=== PATIENT | male | born 1945 | race Caucasian/White ===

== ENCOUNTER 2017-02-06 08:25 | Day surgery (SDC) | payer MEDICARE, OTHER ==
--- NOTE | 2017-02-05 09:31 | HISTORY AND PHYSICAL E ---
History and Physical NAME: SELVIN AMEZQUITA : 1945 AGE: 71Y ADMITTED: 02/06/2017 ROOM: REFERRING: [facility] for colon screening, stool positive for blood. PAST SURGICAL HISTORY: Right shoulder surgery. MEDICATIONS: 1. Baby aspirin. 2. Lisinopril. 3. Iron. 4. Pravastatin. ALLERGIES: The patient is allergic to SULFA. SOCIAL HISTORY: . Does not smoke. Does not drink. FAMILY HISTORY: Father had CA of the throat. His mom had cardiac disease. REVIEWING OF SYSTEMS: CARDIAC: Hypertension, high cholesterol. ENDOCRINE: Diabetes. GASTROINTESTINAL: Anemia, blood in the stool. MUSCULOSKELETAL: Arthritis in the hands. PHYSICAL EXAMINATION: GENERAL: Pleasant, alert, oriented. VITAL SIGNS: Blood pressure 160/90, pulse 80, respirations 18, temperature is 98. HEAD, EYES, EARS, NOSE, THROAT: Normal. NECK: Supple. LUNGS: Clear. ABDOMEN: Soft. NEUROLOGIC: Negative. CONCLUSION: Colon screening. PLAN: Scheduled colonoscopy for 02/06. DICTATING PHYSICIAN: CARLOTTA SAMAYOA M.D. [id number] PHY#: [id number] ID: [id number] JOB#: [id number] ACCT: [id number] cc:CARLOTTA SAMAYOA M.D. >
[~2017-02-06 08:25] MED LIST: EPINEPHRINE INJ 1 MG/10 ML DISP.SYRIN ONE; FENTANYL CITRATE INJ/PF 100 MCG/2 ML AMPUL ONE; FLUMAZENIL INJ 0.5 MG/5 ML VIAL IV ONE; GLUCAGON,HUMAN RECOMB 1 MG INJ ONE; GLYCOPYRROLATE INJ 0.4 MG/2 ML VIAL ONE; LIDOCAINE 2% JELLY 30 ML TUBE ONE; MIDAZOLAM 2 MG/2 ML INJ ONE; NALOXONE HCL INJ/PF 0.4 MG/1 ML SDV ONE; ONDANSETRON HCL INJ/PF 4 MG/2 ML SDV ONE
[2017-02-06 10:24] LABS: ABSOLUTE BASOPHILS # (AUTO) 0.1 10^3/uL (0.0-0.2); ABSOLUTE EOSINOPHILS # (AUTO) 0.2 10^3/uL (0.0-0.6); ABSOLUTE LYMPHOCYTES (AUTO) 1.5 10^3/uL (0.5-4.7); ABSOLUTE MONOCYTES (AUTO) 0.5 10^3/uL (0.1-1.4); ABSOLUTE NEUT (AUTO) 6.3 10^3/uL (1.7-8.2); BASOPHILS % (AUTO) 0.7 % (0-2); EOSINOPHILS % (AUTO) 1.8 % (0-6); HEMATOCRIT 39.3 % (37.9-51.0); HEMOGLOBIN 13.4 g/dL (13.5-17.0); HGB HCT DIFFERENCE 0.9; LYMPHOCYTES % (AUTO) 17.5 % (13-45); MEAN CORPUSCULAR HEMOGLOBIN 31.8 pg (27.0-33.4); MEAN CORPUSCULAR HGB CONC 34.1 g/dL (32.0-36.0); MEAN CORPUSCULAR VOLUME 93 fl (80-97); RED BLOOD COUNT 4.21 10^6/uL (4.35-5.55); RED CELL DISTRIBUTION WIDTH 13.4 % (11.5-14.0); WHITE BLOOD COUNT 8.5 10^3/uL (4.0-10.5)
[2017-02-06 10:52] LABS: ALANINE AMINOTRANSFERASE 29 U/L (21-72); ALBUMIN 3.9 g/dL (3.5-5.0); ALKALINE PHOSPHATASE 59 U/L (38-126); ANION GAP 9 (5-19); ASPARTATE AMINO TRANSFERASE 22 U/L (17-59); BILIRUBIN,DIRECT 0.4 mg/dL (0.0-0.4); BILIRUBIN,TOTAL 0.9 mg/dL (0.2-1.3); BLOOD UREA NITROGEN 13 mg/dL (7-20); CALCIUM 9.2 mg/dL (8.4-10.2); CARBON DIOXIDE 29 mmol/L (22-30); CHLORIDE 103 mmol/L (98-107); CREATININE RESULT 0.91 mg/dL (0.52-1.25); GLUCOSE 150 mg/dL (75-110); POTASSIUM 3.8 mmol/L (3.6-5.0); SODIUM 140.8 mmol/L (137-145)
[2017-02-06 11:22] LABS: CARCINOEMBRYONIC ANTIGEN 1.1 ng/mL (<3.0)
[2017-02-06 12:12] VITALS: BP 141/77
--- NOTE | 2017-02-06 13:02 | EKG REPORT ---
SEVERITY:- ABNORMAL ECG - SINUS RHYTHM SUPRAVENTRICULAR BIGEMINY RIGHT BUNDLE BRANCH BLOCK : Confirmed by: Harrison Jeong MD 06-Feb-2017 13:01:21
--- NOTE | 2017-03-15 20:23 | DISCHARGE SUMMARY E ---
Discharge Summary NAME: SELVIN AMEZQUITA : 1945 AGE: 71Y ADMITTED: 02/06/2017 DISCHARGED: 02/06/2017 SUMMARY: The patient presented to us for colon screening. Patient presented to us from the [facility] for colon screening. The patient underwent colon exam today. The patient presented at this time for colon exam, underwent colonoscopy showing a polyp 18 cm above the rectum. The patient did have sigmoid polyp and he does have rectosigmoid polyps. Biopsy 18 cm above the anus showing polyps, 1 cm sessile polyp and 5 cm sessile polyp. Again, the patient did have a polyp at 20 cm above the anus, 0.5 cm, biopsied. He did have another polyp 18 cm above the anus, biopsy obtained. The biopsy came back adenoma polyp. The patient did have a CAT scan after the colonoscopy showing 2 cm, solid enhancing nodule in the left upper pole of the kidney worrisome for primary tumor. Patient needs surgical consult for sessile polyp in the sigmoid and diverticulosis and he is undergoing evaluation and referral for a kidney mass, 2 cm, solid enhancing nodule in the left kidney. DISCHARGE PLAN: Soft diet. Awaiting biopsy results. Nephrology consult. Surgical consult. DICTATING PHYSICIAN: CARLOTTA SAMAYOA M.D. [id number] Y#: [id number] ID: [id number] JOB#: [id number] ACCT: [id number] cc:CARLOTTA SAMAYOA M.D. >
--- NOTE | 2017-03-15 20:33 | OPERATIVE REPORT E ---
Operative Report NAME: SELVIN AMEZQUITA : 1945 AGE: 71Y DATE OF SURGERY: 02/06/2017 ROOM: PREOPERATIVE DIAGNOSIS: Blood in the stool. POSTOPERATIVE DIAGNOSES: 1. A polyp 18 cm above the anus. 2. Diverticulosis. 3. Hemorrhoids. PROCEDURE: Colonoscopy. SURGEON: CARLOTTA SAMAYOA M.D. TISSUE REMOVED OR ALTERED: Biopsy polyp in the sigmoid colon. ANESTHESIA: Versed 2, fentanyl 100. DESCRIPTION: Rectal exam shows external hemorrhoids, sigmoid diverticulosis. Patient did have a polyp biopsy about 20 cm above the anus. There is a sessile polyp in the sigmoid area. Descending colon normal, transverse colon normal, ascending colon normal, cecum normal. Scope withdrawn back from cecum, ascending, transverse, descending, sigmoid all the way to the rectum. CONCLUSION: 1. Diverticulosis. 2. External hemorrhoids. 3. A polyp 18 cm above the anal verge. Patient tolerated the procedure well. CARLOTTA SAMAYOA M.D. DICTATING PHYSICIAN: CARLOTTA SAMAYOA M.D. [id number] PHY#: [id number] ID: [id number] JOB#: [id number] ACCT: [id number] cc:CARLOTTA SAMAYOA M.D. >
== END 2017-02-06 11:45 | disposition home or self-care (01) ==
LOC: END 08:25
PROVIDERS: ATTEND Specialist
PROC: 0DBP8ZX Excision of Rectum, Via Natural or Artificial Opening Endoscopic, Diagnostic (ICD-10-PCS; principal; 2017-02-06 09:00)
DX: D12.7 Benign neoplasm of rectosigmoid junction (principal); K64.4 Residual hemorrhoidal skin tags; R97.0 Elevated carcinoembryonic antigen [CEA]; Z79.899 Other long term (current) drug therapy
CPT/HCPCS: 45380; 36415; 82378; 85025; 80053; 88305 ×2; 93005; 93010; J2250; J3010; J1610; J2405; J0171; J2310; J3490

== ENCOUNTER → 2017-02-12 | Outpatient (CLI) | payer MEDICARE ==
--- NOTE | 2017-02-12 15:27 | RADIOLOGY REPORT (SQ) ---
EXAM DESCRIPTION: CT ABD/PELVIS WITH IV ONLY COMPLETED DATE/TIME: 02/12/2017 1:51 pm REASON FOR STUDY: POLYP OF COLON (K63.5) K63.5 POLYP OF COLON COMPARISON: None. TECHNIQUE: CT scan of the abdomen and pelvis performed using helical scanning technique with dynamic intravenous contrast injection. No oral contrast. Images reviewed with lung, soft tissue, and bone windows. Reconstructed coronal and sagittal MPR images reviewed. Delayed images for evaluation of the urinary system also acquired. All images stored on PACS. All CT scanners at this facility use dose modulation, iterative reconstruction, and/or weight based d osing when appropriate to reduce radiation dose to as low as reasonably achievable (ALARA). [facility]: Dose Right [facility]: CareDose [facility]: Dose Right [facility]: Teradose 4D [facility]: Aframe CONTRAST TYPE AND DOSE: contrast/concentration: Isovue 370.00 mg/ml; Total Contrast Delivered: 100.0 ml; Total Saline Delivered: 72.0 ml RENAL FUNCTION: Creatinine 0.91 RADIATION DOSE: Up-to-date CT equipment and radiation dose reduction techniques were employed. CTDIv ol: 12.3 - 14.1 mGy. DLP: 1657 mGy-cm.. LIMITATIONS: None. FINDINGS: LOWER CHEST: No significant findings. No nodules or infiltrates. LIVER: Normal size. No masses. No dilated ducts. SPLEEN: Normal size. No focal lesions. PANCREAS: No masses. No significant calcifications. No adjacent inflammation or peripancreatic fluid collections. Pancreatic duct not dilated. GALLBLADDER: No identified stones by CT criteria. No inflammatory changes to suggest cholecystitis. ADRENAL GLANDS: No significant masses or asymmetry. RIGHT KIDNEY AND URETER: No solid masses. 2 cm right upper pole renal cortical cyst No significant c alcifications. No hydronephrosis or hydroureter. LEFT KIDNEY AND URETER: 2 cm avidly enhancing left upper pole renal cortical mass worrisome for small primary neoplasm, best shown on axial image 40 and sagittal reconstruction image 59. No significan t calcifications. No hydronephrosis or hydroureter. AORTA AND VESSELS: No aneurysm. No dissection. Renal arteries, SMA, celiac without stenosis. RETROPERITONEUM: No retroperitoneal adenopathy, hemorrhage or masses. BOWEL AND PERITONEAL CAVITY: No oral contrast. No CT evidence of bowel obstruction. No free intrape ritoneal air or fluid. APPENDIX: Normal. PELVIS: No mass. No free fluid. Normal bladder. ABDOMINAL WALL: Small fat containing bilateral inguinal hernias. BONES: No significant or acute findings. OTHER: No other significant finding. IMPRESSION: 2 cm solid enhancing nodule in the left upper pole kidney worrisome for primary tumor. TECHNICAL DOCUMENTATION: JOB ID: [id number] Quality ID # [id number]: Final reports with documentation of one or more dose reduction techniques (e.g., Au tomated exposure control, adjustment of the mA and/or kV according to patient size, use of iterative reconstruction technique) 2010 [email or web address]- All Rights Reserved
== END ==
LOC: RAD 13:04
PROVIDERS: ATTEND Surgery
DX: K63.5 Polyp of colon (principal)
CPT/HCPCS: 74177

== ENCOUNTER 2017-08-12 08:20 | Day surgery (SDC) | payer OTHER, MEDICARE ==
[2017-08-12 09:39] LABS: HEMATOCRIT 38.8 % (37.9-51.0); HEMOGLOBIN 13.2 g/dL (13.5-17.0); MEAN CORPUSCULAR HEMOGLOBIN 31.6 pg (27.0-33.4); MEAN CORPUSCULAR HGB CONC 33.9 g/dL (32.0-36.0); MEAN CORPUSCULAR VOLUME 93 fl (80-97); PLATELET COUNT 372 10^3/uL (150-450); RED BLOOD COUNT 4.17 10^6/uL (4.35-5.55); RED CELL DISTRIBUTION WIDTH 13.3 % (11.5-14.0)
[2017-08-12] MEDS ORDERED: ONDANSETRON HCL INJ/PF 4 MG/2 ML SDV ONE (09:41)
[2017-08-12] MEDS ORDERED: NALOXONE HCL INJ/PF 0.4 MG/1 ML SDV ONE (09:42)
[2017-08-12] MEDS ORDERED: FLUMAZENIL INJ 0.5 MG/5 ML VIAL ONE (09:43)
[2017-08-12] MEDS ORDERED: GLUCAGON,HUMAN RECOMB 1 MG INJ ONE (09:43)
[2017-08-12] MEDS ORDERED: EPINEPHRINE INJ 1 MG/10 ML DISP.SYRIN ONE (09:43)
[2017-08-12 10:01] LABS: ALANINE AMINOTRANSFERASE 35 U/L (21-72); ALBUMIN 4.4 g/dL (3.5-5.0); ALKALINE PHOSPHATASE 60 U/L (38-126); ANION GAP 10 (5-19); ASPARTATE AMINO TRANSFERASE 25 U/L (17-59); BILIRUBIN,DIRECT 0.1 mg/dL (0.0-0.4); BILIRUBIN,TOTAL 0.7 mg/dL (0.2-1.3); BLOOD UREA NITROGEN 12 mg/dL (7-20); CALCIUM 9.9 mg/dL (8.4-10.2); CARBON DIOXIDE 28 mmol/L (22-30); CHLORIDE 104 mmol/L (98-107); GLUCOSE 98 mg/dL (75-110); POTASSIUM 4.5 mmol/L (3.6-5.0); SODIUM 141.5 mmol/L (137-145); TOTAL PROTEIN 7.2 g/dL (6.3-8.2)
[2017-08-12] MEDS: MIDAZOLAM 2 MG/2 ML INJ ONE ×2 (10:26→10:32)
[2017-08-12] MEDS: FENTANYL CITRATE INJ/PF 100 MCG/2 ML AMPUL ONE ×3 (10:28→10:34)
[2017-08-12 10:31] LABS: CARCINOEMBRYONIC ANTIGEN 1.4 ng/mL (<3.0)
--- NOTE | 2017-08-12 11:24 | Operative Report ---
Operative Report DATE OF SURGERY: 08/12/17 PREOPERATIVE DIAGNOSIS: Colon mass. POSTOPERATIVE DIAGNOSIS: Right colon half centimeter sessile polyp. Distal sigmoid colon mass. Rectosigmoid colon mass. OPERATION: Colonoscopy with snare polypectomy right colon polyp. Biopsy of distal sigmoid colon and rectosigmoid colon masses. Rigid proctoscopy. SURGEON: DAKOTA HOLGUIN ANESTHESIA: Moderate Sedation TISSUE REMOVED OR ALTERED: Right colon polyp. Distal sigmoid and rectosigmoid mass. COMPLICATIONS: None ESTIMATED BLOOD LOSS: Minimal INTRAOPERATIVE FINDINGS: Half centimeter sessile polyp in the right colon. Distal sigmoid colon 3 cm sessile mass. 4-5 cm rectosigmoid colon mass appears partially pedunculated. PROCEDURE: Informed consent was obtained. Patient was brought to the endoscopy suite. IV sedation with Versed and fentanyl was administered. Digital rectal exam revealed no palpable perianal masses. Endoscope was passed via the patient's anus it was fed to the cecum. The bowel prep was adequate. Visualization was good. Right colon had 1/2 cm sessile polyp which was snare polypectomy need and the specimen retrieved. Otherwise the cecum and the right colon appeared normal. Transverse colon and descending colon appeared normal. At the distal sigmoid colon there was a 3 cm sessile mass which appeared friable this was biopsied. Just distal to this mass at the rectosigmoid junction there was a 4- 5 cm mass that appear partially pedunculated. This mass was biopsied. Remainder of the rectum appeared normal. Rigid proctoscopy was performed to measure the distance from the anal verge. The rectosigmoid mass was 14 cm from the anal verge. Patient tolerated procedure well with no apparent complications and was taken to the recovery area in stable condition. Status post successful snare polypectomy right colon polyp. Patient with 2 masses at the distal sigmoid colon and rectosigmoid junction, beginning at 14 cm from the anal verge. Will follow up with the patient to discuss surgical approach.
--- NOTE | 2017-08-12 11:26 | PDOC DISCHARGE SUMMARY ---
Discharge Summary (SDC) - Discharge Final Diagnosis: Right colon polyp. Distal sigmoid colon mass. Rectosigmoid colon mass. Distal margin of the masses was at 14 cm from the anal verge. Date of Surgery: 08/12/17 Discharge Date: 08/12/17 Condition: Good Treatment or Instructions: Underwent colonoscopy with snare polypectomy. Biopsies of rectosigmoid colon mass and distal sigmoid colon mass. November discharge patient home when met discharge criteria. Follow-up with me next week. Discharge Diet: As Tolerated Discharge Activity: Activity As Tolerated Report the Following to Your Physician Immediately: Increase in Pain, Unusual Bleeding - Normal to have small amount of bleeding but if large amounts of bleeding, stop aspirin and call MD.
[2017-08-12 12:55] VITALS: BP 165/92
== END 2017-08-12 12:10 | disposition home or self-care (01) ==
LOC: END 08:20
PROVIDERS: ATTEND Surgery
PROC: 0DBF8ZX Excision of Right Large Intestine, Via Natural or Artificial Opening Endoscopic, Diagnostic (ICD-10-PCS; principal; 2017-08-12 10:00)
PROC: 0DBN8ZX Excision of Sigmoid Colon, Via Natural or Artificial Opening Endoscopic, Diagnostic (ICD-10-PCS; 2017-08-12 10:00)
PROC: 0DBP8ZX Excision of Rectum, Via Natural or Artificial Opening Endoscopic, Diagnostic (ICD-10-PCS; 2017-08-12 10:00)
DX: K63.5 Polyp of colon (principal); D12.7 Benign neoplasm of rectosigmoid junction; I10 Essential (primary) hypertension; Z88.2 Allergy status to sulfonamides
CPT/HCPCS: 45380; 45385; 36415; 82378; 85027; 80053; 88305 ×2; J2250; J3010; 46600; J0171; J1610; J2310; J2405; J3490

== ENCOUNTER 2017-09-02 12:01 | Inpatient (IN) | payer OTHER, MEDICARE ==
[2017-08-27 12:01] LABS: HEMATOCRIT 40.2 % (37.9-51.0); HEMOGLOBIN 13.9 g/dL (13.5-17.0); MEAN CORPUSCULAR HEMOGLOBIN 31.7 pg (27.0-33.4); MEAN CORPUSCULAR HGB CONC 34.4 g/dL (32.0-36.0); MEAN CORPUSCULAR VOLUME 92 fl (80-97); PLATELET COUNT 335 10^3/uL (150-450); RED BLOOD COUNT 4.36 10^6/uL (4.35-5.55); RED CELL DISTRIBUTION WIDTH 13.4 % (11.5-14.0); WHITE BLOOD COUNT 8.1 10^3/uL (4.0-10.5)
[2017-08-27 12:27] LABS: ANION GAP 12 (5-19); BLOOD UREA NITROGEN 13 mg/dL (7-20); CALCIUM 8.7 mg/dL (8.4-10.2); CARBON DIOXIDE 25 mmol/L (22-30); CHLORIDE 105 mmol/L (98-107); GLUCOSE 83 mg/dL (75-110); POTASSIUM 4.7 mmol/L (3.6-5.0); SODIUM 141.7 mmol/L (137-145)
--- NOTE | 2017-08-27 13:43 | EKG REPORT ---
SEVERITY:- ABNORMAL ECG - SINUS RHYTHM RBBB AND LAFB NONSPECIFIC T INVERSION INFERIOR LEADS : Confirmed by: Harrison Jeong MD 27-Aug-2017 13:42:17
[~2017-09-02 12:01] MED LIST changes: -EPINEPHRINE INJ 1 MG/10 ML DISP.SYRIN ONE; +ERTAPENEM SODIUM 1 GM in NORMAL SALINE 100 ML IV PRN; -FENTANYL CITRATE INJ/PF 100 MCG/2 ML AMPUL ONE; -FLUMAZENIL INJ 0.5 MG/5 ML VIAL IV ONE; -GLUCAGON,HUMAN RECOMB 1 MG INJ ONE; +LACTATED RINGERS 1000 ML IV PRN; +LIDOCAINE 0.5% INJ-PF (5 MG/ML) 50 ML SDV SUBCUT PRN; -LIDOCAINE 2% JELLY 30 ML TUBE ONE; -MIDAZOLAM 2 MG/2 ML INJ ONE; -NALOXONE HCL INJ/PF 0.4 MG/1 ML SDV ONE; +NEOSTIGMINE METHYLSULFATE 10 MG/10 ML VIAL ONE; -ONDANSETRON HCL INJ/PF 4 MG/2 ML SDV ONE; +ROCURONIUM BROMIDE INJ 50 MG/5 ML VIAL IV ONE; +SUCCINYLCHOLINE CHLORIDE INJ 200 MG/10 ML VIAL ONE; +VECURONIUM BROMIDE INJ 10 MG VIAL IV ONE
[2017-09-02] MEDS ORDERED: BUPIVACAINE HCL 0.25 % INJ/PF (2.5 MG/1 ML) 30 ML VIAL ONE (13:51)
[2017-09-02] MEDS ORDERED: LIDOCAINE 2% INJ-PF (20 MG/ML) 10 ML AMPUL ONE (14:16)
[2017-09-02] MEDS ORDERED: FENTANYL CITRATE INJ/PF 250 MCG/5 ML AMPULE ONE ×2 (14:16→16:29)
[2017-09-02] MEDS ORDERED: EPHEDRINE SULFATE INJ 50 MG/1 ML AMPULE ONE (14:16)
[2017-09-02] MEDS ORDERED: MIDAZOLAM 2 MG/2 ML INJ ONE (14:16)
[2017-09-02] MEDS ORDERED: ACETAMINOPHEN 100 ML IV ONE (14:17)
[2017-09-02] MEDS ORDERED: PROPOFOL INJ 200 MG/20 ML VIAL IV ONE (14:17)
[2017-09-02] MEDS ORDERED: HYDROMORPHONE HCL INJ/PF 2 MG/ML AMPULE ONE (14:17)
[2017-09-02] MEDS ORDERED: ONDANSETRON HCL INJ/PF 4 MG/2 ML SDV ONE (14:17)
[2017-09-02] MEDS ORDERED: DEXAMETHASONE SOD PHOSPHATE INJ 4 MG/1 ML VIAL ONE (14:17)
[2017-09-02] MEDS ORDERED: HYDRALAZINE HCL INJ/PF 20 MG/1 ML SDV ONE (16:28)
[2017-09-02] MEDS ORDERED: DIPHENHYDRAMINE HCL 50 MG/ML VIAL IV PRN (18:00)
[2017-09-02] MEDS ORDERED: MORPHINE SULFATE 10 MG/ML INJ IV PRN (18:00)
[2017-09-02] MEDS ORDERED: FENTANYL CITRATE INJ/PF 100 MCG/2 ML AMPUL IV PRN ×3 (18:00)
[2017-09-02] MEDS ORDERED: OXYCODONE-ACETAMINOPHEN 5-325 MG TABLET PO PRN ×2 (18:00)
[2017-09-02] MEDS ORDERED: MEPERIDINE HCL/PF INJ 25 MG/1 ML DISP.SYRIN IV PRN (18:00)
[2017-09-02] MEDS ORDERED: PROMETHAZINE HCL INJ 25 MG/1 ML VIAL IV PRN ×2 (18:00)
[2017-09-02] MEDS ORDERED: ONDANSETRON HCL INJ/PF 4 MG/2 ML SDV IV PRN ×2 (18:00→19:35)
[2017-09-02] MEDS ORDERED: DEXTROSE 50%-WATER 25 GM/50 ML DISP.SYRIN IV PRN ×2 (19:35)
[2017-09-02] MEDS ORDERED: DEXTROSE 40% GEL 15 GM TUBE PO PRN ×2 (19:35)
[2017-09-02] MEDS ORDERED: HYDROMORPHONE HCL INJ/PF 2 MG/ML AMPULE IV PRN (19:35)
[2017-09-02] MEDS ORDERED: GLUCAGON,HUMAN RECOMB 1 MG INJ SUBCUT PRN (19:35)
--- NOTE | 2017-09-02 19:35 | Operative Report ---
Operative Report DATE OF SURGERY: 09/02/17 PREOPERATIVE DIAGNOSIS: Rectosigmoid adenomatous polyps POSTOPERATIVE DIAGNOSIS: Upper rectal masses 2 OPERATION: Low anterior resection with mobilization of the splenic flexure. SURGEON: DAKOTA HOLGUIN ANESTHESIA: GA TISSUE REMOVED OR ALTERED: Rectosigmoid COMPLICATIONS: None ESTIMATED BLOOD LOSS: 200 cc INTRAOPERATIVE FINDINGS: Large pedunculated polyp at the upper rectum with a large sessile polyp just superior to the pedunculated polyp. PROCEDURE: Informed consent was obtained. Patient was brought to the operating room and placed on the operating room table in the supine position. After satisfactory induction of general anesthesia patient was placed in a low lithotomy position and his abdomen and perineum were prepped and draped in the usual sterile fashion. A midline abdominal incision was made, dissection carried down through the fascia and the peritoneal cavity entered without difficulty. A wound protractor as well as a Bookwalter retractor was used during the case. Exploratory laparotomy was performed first. The small bowel was run demonstrating no abnormalities. The right colon and transverse colon descending colon felt normal. At upper rectum at the level of the peritoneal reflection there was a palpable mass. Stomach felt smooth. As did the liver. NG tube position was confirmed with palpation. The peritoneal surface of the abdominal wall felt smooth with no nodules. The sigmoid colon was mobilized and dissection was carried out distally staying in an avascular plane posteriorly first and then performing the lateral dissection and then the anterior dissection to the level of the mid rectum. The left colon and splenic flexure were mobilized. This portion of the procedure was difficult due to a very high positioned splenic flexure and dense omental adhesions. The proximal sigmoid colon was divided with a MELYSSA stapling device and the mesentery of the sigmoid colon was taken along with the specimen. A plane was created between the mid rectum and the mesorectum and the rectum was divided using a contour stapling device. The mesorectum was divided using a LigaSure device. The specimen was taken to pathology where it was opened. The post pathologist cut the distal staple line first and then proceeded to open the specimen longitudinally. There were 2 masses in the upper rectum. The lower of the two masses appeared pedunculated and in cross sectioning it, it did not appear to penetrate the muscularis. The distal margin from this lower pedunculated mucosal mass was at least a centimeter. The mass above this one had a margin of greater than 3 cm. This mass was sessile and appeared to penetrate the muscularis. The colon end reached down to the rectal stump without tension. The colon end appeared well vascularized with palpable pulses in the mesentery. Head of a 33 EEA stapling device was attached to the colon end the using a pursestring device. End-to-end anastomosis was then created between the colon and the rectum. Both of the donuts were intact. Anastomosis appeared secure. Proctoscopy was performed verifying secureness of the anastomosis. Hemostasis appeared to be good. Sponge, needle, and instrument counts were all correct. Gene-Jovel drain was placed in the patient's pelvis and brought out through separate stab incision in the patient's right lower abdomen. The fascia was closed with running PDS suture. Skin was closed with ramon. Marcaine was injected at the operative site.
[2017-09-02] MEDS ORDERED: PHARMACY COMMUNICATION ORDER MC NR (19:45)
--- NOTE | 2017-09-02 19:45 | PDOC PROGRESS REPORT ---
Subjective Progress Note for:: 09/02/17 Subjective:: Drowsy but arousable. Comfortable. Reason For Visit: K63.5 POLYP OF COLON Physical Exam Vital Signs: Temp Pulse Resp BP Pulse Ox 98.0 F 71 20 150/93 H 95 09/02/17 12:52 09/02/17 12:52 09/02/17 12:52 09/02/17 12:52 09/02/17 12:52 Intake & Output 09/01/17 09/02/17 09/03/17 06:59 06:59 06:59 Intake Total 3200 Output Total 1425 Balance 1775 General appearance: PRESENT: no acute distress Respiratory exam: PRESENT: clear to auscultation alisha Cardiovascular exam: PRESENT: RRR GI/Abdominal exam: PRESENT: other - Soft, drain output slight blood-tinged. Extremities exam: PRESENT: other - No swelling. No tenderness. Results Laboratory Results: 08/27/17 10:55 08/27/17 10:55 Assessment & Plan - Diagnosis (1) Rectal neoplasm Is this a current diagnosis for this admission?: Yes Plan: Upper rectal neoplasm's 2 status post low anterior resection. Patient looks good postoperatively.
[2017-09-03 07:17] LABS: HEMATOCRIT 37.7 % (37.9-51.0); HEMOGLOBIN 12.5 g/dL (13.5-17.0); MEAN CORPUSCULAR HEMOGLOBIN 30.9 pg (27.0-33.4); MEAN CORPUSCULAR HGB CONC 33.1 g/dL (32.0-36.0); MEAN CORPUSCULAR VOLUME 93 fl (80-97); PLATELET COUNT 326 10^3/uL (150-450); RED BLOOD COUNT 4.04 10^6/uL (4.35-5.55); RED CELL DISTRIBUTION WIDTH 13.9 % (11.5-14.0); WHITE BLOOD COUNT 19.8 10^3/uL (4.0-10.5)
[2017-09-03 07:32] LABS: ANION GAP 9 (5-19); BLOOD UREA NITROGEN 17 mg/dL (7-20); CALCIUM 9.1 mg/dL (8.4-10.2); CARBON DIOXIDE 23 mmol/L (22-30); CHLORIDE 107 mmol/L (98-107); GLUCOSE 122 mg/dL (75-110); POTASSIUM 4.3 mmol/L (3.6-5.0); SODIUM 138.6 mmol/L (137-145)
--- NOTE | 2017-09-03 09:09 | PDOC PROGRESS REPORT ---
Subjective Progress Note for:: 09/03/17 Subjective:: Complaining of back pain due to uncomfortable bed. That is bothering him much more than anything else at this point. Reason For Visit: UPPER RECTAL NEOPLASMS Physical Exam Vital Signs: Temp Pulse Resp BP Pulse Ox 97.9 F 84 20 127/81 H 100 09/03/17 08:25 09/03/17 08:25 09/03/17 08:25 09/03/17 08:25 09/03/17 08:25 Intake & Output 09/02/17 09/03/17 09/04/17 06:59 06:59 06:59 Intake Total 4210 Output Total 2145 Balance 206 General appearance: PRESENT: no acute distress, cooperative Respiratory exam: PRESENT: clear to auscultation alisha Cardiovascular exam: PRESENT: RRR GI/Abdominal exam: PRESENT: other - Soft, nondistended, appropriate tenderness. NG output is minimal and nonbilious. Extremities exam: PRESENT: other - No swelling and no tenderness. Results Laboratory Results: 09/03/17 06:13 09/03/17 06:13 09/03/17 09/03/17 06:13 06:13 WBC 19.8 H RBC 4.04 L Hgb 12.5 L Hct 37.7 L MCV 93 MCH 30.9 MCHC 33.1 RDW 13.9 Plt Count 326 Sodium 138.6 Potassium 4.3 Chloride 107 Carbon Dioxide 23 Anion Gap 9 BUN 17 Creatinine 0.71 Est GFR ( Amer) > 60 Est GFR (Non-Af Amer) > 60 Glucose 122 H Calcium 9.1 Assessment & Plan - Diagnosis (1) Rectal neoplasm Is this a current diagnosis for this admission?: Yes Plan: Upper rectal neoplasm's 2 status post low anterior resection. Patient has not received his narcotics for pain medication today. Encourage patient to use his pain medication and will also add Toradol. Will get the patient up out of bed. When he is ambulating well will DC his NG tube and his Goodwin catheter.
[2017-09-03] MEDS ORDERED: (PENDING PHARMACY ID) (Pravastatin Sodium [Pravastatin Sodium] 10 MG) PO SCH (10:00)
[2017-09-03] MEDS ORDERED: (PENDING PHARMACY ID) (Lisinopril [Prinivil 20 Mg Tablet] 20 MG) PO SCH (10:00)
[2017-09-03] MEDS ORDERED: CYANOCOBALAMIN 1000 MG PO SCH (10:00)
[2017-09-03] MEDS: KETOROLAC TROMETHAMINE INJ/PF 30 MG/1 ML SDV IV PRN ×2 (10:32→19:49)
[2017-09-03] MEDS: LISINOPRIL 10 MG TABLET PO SCH (10:33)
[2017-09-03] MEDS: CYANOCOBALAMIN (VITAMIN B-12) 1,000 MCG TABLET PO SCH (10:33)
[2017-09-03] MEDS: NORMAL SALINE 1000 ML 1,000 ML IV PRN (11:27)
[2017-09-03] MEDS: SIMVASTATIN 10 MG TABLET PO SCH (21:10)
[2017-09-04] MEDS: LISINOPRIL 10 MG TABLET PO SCH (09:29)
[2017-09-04] MEDS: CYANOCOBALAMIN (VITAMIN B-12) 1,000 MCG TABLET PO SCH (09:29)
[2017-09-04] MEDS: NORMAL SALINE 1000 ML 1,000 ML IV PRN (09:30)
[2017-09-04] MEDS: KETOROLAC TROMETHAMINE INJ/PF 30 MG/1 ML SDV IV PRN ×2 (09:50→18:00)
--- NOTE | 2017-09-04 11:26 | PDOC PROGRESS REPORT ---
Subjective Progress Note for:: 09/04/17 Subjective:: Feels well. Not passing any gas yet. Back feels much better. Ambulating well. Reason For Visit: UPPER RECTAL NEOPLASMS Physical Exam Vital Signs: Temp Pulse Resp BP Pulse Ox 97.8 F 73 18 184/93 H 97 09/04/17 08:17 09/04/17 08:17 09/04/17 08:17 09/04/17 08:17 09/04/17 08:17 Intake & Output 09/03/17 09/04/17 09/05/17 06:59 06:59 06:59 Intake Total 4210 3575 Output Total 2145 840 Balance 2065 2735 Weight 100.24 kg General appearance: PRESENT: no acute distress, cooperative Respiratory exam: PRESENT: clear to auscultation alisha Cardiovascular exam: PRESENT: RRR GI/Abdominal exam: PRESENT: other - Soft, nondistended, mild tenderness to palpation. Extremities exam: PRESENT: other - No swelling. No tenderness. Results Laboratory Results: 09/03/17 06:13 09/03/17 06:13 Assessment & Plan - Diagnosis (1) Rectal neoplasm Is this a current diagnosis for this admission?: Yes Plan: Upper rectal neoplasm's 2 status post low anterior resection. Patient looks much better. Await bowel function. Keep NG tube in for now. IVETT Goodwin.
--- NOTE | 2017-09-04 17:33 | PDOC PROGRESS REPORT ---
Subjective Reason For Visit: UPPER RECTAL NEOPLASMS Physical Exam Vital Signs: Temp Pulse Resp BP Pulse Ox 98.1 F 76 18 176/95 H 97 09/04/17 16:32 09/04/17 16:32 09/04/17 16:32 09/04/17 16:32 09/04/17 16:32 Intake & Output 09/03/17 09/04/17 09/05/17 06:59 06:59 06:59 Intake Total 4210 3575 Output Total 2145 840 Balance 2065 2735 Weight 100.24 kg Results Laboratory Results: 09/03/17 06:13 09/03/17 06:13 Assessment & Plan - Diagnosis (1) Rectal neoplasm Is this a current diagnosis for this admission?: Yes Plan: Pathology report has returned. 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 Patient would benefit from adjuvant chemotherapy and radiation therapy. Patient also has a suspicious appearing renal mass. Full evaluation of this renal mass still has not [facility]. I will consult oncology while the patient is in the hospital. I will also consult urology as well.
[2017-09-04] MEDS: SIMVASTATIN 10 MG TABLET PO SCH (21:28)
[2017-09-05] MEDS: KETOROLAC TROMETHAMINE INJ/PF 30 MG/1 ML SDV IV PRN ×3 (00:27→18:32)
[2017-09-05] MEDS: FAMOTIDINE INJ/PF 20 MG/2 ML SDV IV SCH ×2 (06:18→17:13)
[2017-09-05] MEDS: NORMAL SALINE 1000 ML 1,000 ML IV PRN ×2 (08:26→18:33)
--- NOTE | 2017-09-05 08:26 | PDOC PROGRESS REPORT ---
Subjective Progress Note for:: 09/05/17 Subjective:: Feels well. Not passing any gas yet. Ambulating well. Reason For Visit: UPPER RECTAL NEOPLASMS Physical Exam Vital Signs: Temp Pulse Resp BP Pulse Ox 98.1 F 67 20 177/89 H 97 09/05/17 03:29 09/05/17 03:29 09/05/17 03:29 09/05/17 03:29 09/05/17 03:29 Intake & Output 09/04/17 09/05/17 09/06/17 06:59 06:59 06:59 Intake Total 3575 2302 Output Total 840 2200 Balance 2735 102 Weight 100.24 kg 98.9 kg General appearance: PRESENT: no acute distress, cooperative Respiratory exam: PRESENT: clear to auscultation alisha Cardiovascular exam: PRESENT: RRR GI/Abdominal exam: PRESENT: other - Soft, Nondistended, minimal tenderness. NG tube output is bile tinged Extremities exam: PRESENT: other - No swelling and no tenderness Results Laboratory Results: 09/03/17 06:13 09/03/17 06:13 Assessment & Plan - Diagnosis (1) Rectal neoplasm Is this a current diagnosis for this admission?: Yes (2) Rectal cancer Is this a current diagnosis for this admission?: Yes Plan: T2 N1 upper rectal cancer status post low anterior resection. Patient looks good. Await bowel function. Pending oncology consult this weekend. Pending urology consult as well for suspicious kidney lesion. Difficult to obtain outpatient consultation through the [facility] therefore obtaining inpatient consultation during this hospitalization.
[2017-09-05] MEDS: CYANOCOBALAMIN (VITAMIN B-12) 1,000 MCG TABLET PO SCH (10:01)
[2017-09-05] MEDS: LISINOPRIL 10 MG TABLET PO SCH (10:01)
[2017-09-05 10:26] LABS: ANION GAP 15 (5-19); BLOOD UREA NITROGEN 15 mg/dL (7-20); CALCIUM 9.5 mg/dL (8.4-10.2); CARBON DIOXIDE 21 mmol/L (22-30); CHLORIDE 105 mmol/L (98-107); GLUCOSE 85 mg/dL (75-110); POTASSIUM 4.2 mmol/L (3.6-5.0); SODIUM 140.8 mmol/L (137-145)
--- NOTE | 2017-09-05 11:08 | PDOC CONSULTATION ---
Consultation Consult Date: 09/05/17 Consult reason:: Oncology Consultation was requested for newly diagnosed rectal cancer History of Present Illness Admission Date/PCP: 09/02/17 12:01 KERON ALEXANDER DO History of Present Illness: SELVIN AMEZQUITA is a 71 year old male who states that he underwent a screening colonoscopy about 1 month ago. He denies having any GI or rectal symptoms at that time. His screening colonoscopy found a rectal mass. He presented to the hospital for resection of the rectal mass. Today he states that he is feeling good. He is very pleased with the care he has received. Some abdominal tenderness, but not bad. He has not yet been allowed to eat or drink. Past Medical History Cardiac Medical History: Reports: Hypertension Denies: Atrial Fibrillation, Congestive Heart Failure, Coronary Artery Disease, Myocardial Infarction, Hyperlipidema, Peripheral Vascular Disease, Heart Murmur Pulmonary Medical History: Denies: Asthma, Bronchitis, Chronic Obstructive Pulmonary Disease (COPD), Pneumonia Neurological Medical History: Denies: Seizures Renal/ Medical History: Denies: End Stage Renal Disease Malignancy Medical History: Musculoskeltal Medical History: Reports: Arthritis Denies: Fibromyalgia Psychiatric Medical History: Denies: Bipolar Disorder, Depression, Post Traumatic Stress Disorder Hematology: Reports: Anemia Past Surgical History Past Surgical History: Reports: Other - Shoulder replacement 05/2017. [place] teeth extraction Denies: Appendectomy, Cholecystectomy, Coronary Artery Bypass Graft, Gastric Bypass Surgery, Herniorrhaphy, Pacemaker, Tonsillectomy Social History Information Source: Patient Occupation: Retired Truckdriver. Lives with: Family Smoking Status: Never Smoker Frequency of Alcohol Use: None Hx Recreational Drug Use: No Drugs: None Hx Prescription Drug Abuse: No Past Social History Note: He is with 1 daughter and 2 cats. Family History Parental Family History Reviewed: Yes - Father had throat cancer. Mother had CAD and DM. Children Family History Reviewed: Yes Sibling(s) Family History Reviewed.: Yes Medication/Allergy Home Medications: Lisinopril [Prinivil 20 mg Tablet] 20 mg PO DAILY 10/25/11 Aspirin [Aspirin 81 mg Chewable Tablet] 81 mg PO DAILY 02/05/17 Pravastatin Sodium 10 mg PO DAILY 02/05/17 Cyanocobalamin (Vitamin B-12) [Vitamin B12] 1,000 mg PO DAILY 02/06/17 Iron 18 mg PO PRN PRN 08/27/17 Allergies/Adverse Reactions: Sulfa (Sulfonamide Antibiotics) Allergy (Intermediate, Verified 09/02/17 13:02) Generalized Itching Review of Systems Constitutional: ABSENT: fever(s), headache(s) Eyes: ABSENT: visual disturbances Ears: ABSENT: hearing changes Nose, Mouth, and Throat: ABSENT: sore throat Cardiovascular: ABSENT: chest pain Respiratory: ABSENT: dyspnea Gastrointestinal: PRESENT: as per HPI Genitourinary: ABSENT: dysuria Musculoskeletal: ABSENT: muscle weakness Integumentary: ABSENT: rash Neurological: ABSENT: confusion, weakness Physical Exam Vital Signs: Temp Pulse Resp BP Pulse Ox 97.6 F 69 19 179/96 H 95 09/05/17 08:14 09/05/17 08:14 09/05/17 08:14 09/05/17 08:14 09/05/17 08:14 Intake & Output 09/04/17 09/05/17 09/06/17 06:59 06:59 06:59 Intake Total 3575 2302 Output Total 840 2200 Balance 2735 102 Weight 100.24 kg 98.9 kg General appearance: PRESENT: no acute distress, well-developed, well-nourished Exam: male. Head exam: PRESENT: atraumatic Eye exam: PRESENT: PERRLA Mouth exam: PRESENT: moist, other - NG tube in place and draining. Neck exam: ABSENT: lymphadenopathy, tenderness, thyromegaly Respiratory exam: PRESENT: clear to auscultation alisha, unlabored Cardiovascular exam: PRESENT: RRR Pulses: PRESENT: normal dorsalis pedis pul GI/Abdominal exam: PRESENT: soft, tenderness - Mild. Rectal exam: PRESENT: deferred Extremities exam: PRESENT: other - VISHNU/SCD in place.. ABSENT: pedal edema Musculoskeletal exam: PRESENT: normal inspection Neurological exam: PRESENT: alert, awake, oriented to person, oriented to place , oriented to time, oriented to situation Psychiatric exam: PRESENT: appropriate affect Skin exam: PRESENT: normal color Results Laboratory Results: 09/03/17 06:13 09/05/17 09:30 09/05/17 09:30 Sodium 140.8 Potassium 4.2 Chloride 105 Carbon Dioxide 21 L Anion Gap 15 BUN 15 Creatinine 0.71 Est GFR ( Amer) > 60 Est GFR (Non-Af Amer) > 60 Glucose 85 Calcium 9.5 Assessment & Plan - Diagnosis (1) Rectal cancer Is this a current diagnosis for this admission?: Yes Plan: I have explained that this type of cancer usually requires surgery, chemotherapy and radiation. He has already had the surgery. Once he heals from the surgery, I would recommend starting concurrent adjuvant XRT/5FU followed by FOLFOX. I will consult Dr. Zavala so that he can get on the waiting list for radiation. (2) Kidney mass Is this a current diagnosis for this admission?: Yes Plan: I have not yet seen the CT report, but agree with plans for urology consult for evaluation. I do not believe chemotherapy or radiation should start until after we know what this is. - Plan Summary Plan Summary: Thank you for this consultation. I will be happy to continue to follow him with you. Please call with any questions or concerns.
[2017-09-05] MEDS: SIMVASTATIN 10 MG TABLET PO SCH (21:28)
[2017-09-06] MEDS: NORMAL SALINE 1000 ML 1,000 ML IV PRN (06:03)
[2017-09-06] MEDS: FAMOTIDINE INJ/PF 20 MG/2 ML SDV IV SCH ×2 (06:04→17:51)
[2017-09-06 09:18] LABS: ABSOLUTE EOSINOPHILS # (AUTO) 0.2 10^3/uL (0.0-0.6); ABSOLUTE LYMPHOCYTES (AUTO) 1.3 10^3/uL (0.5-4.7); ABSOLUTE MONOCYTES (AUTO) 0.5 10^3/uL (0.1-1.4); BASOPHILS % (AUTO) 0.5 % (0-2); HEMATOCRIT 36.8 % (37.9-51.0); HEMOGLOBIN 12.8 g/dL (13.5-17.0); LYMPHOCYTES % (AUTO) 16.5 % (13-45); MEAN CORPUSCULAR HEMOGLOBIN 32.2 pg (27.0-33.4); MEAN CORPUSCULAR HGB CONC 34.8 g/dL (32.0-36.0); MEAN CORPUSCULAR VOLUME 93 fl (80-97); MONOCYTES % (AUTO) 5.8 % (3-13); PLATELET COUNT 345 10^3/uL (150-450); RED BLOOD COUNT 3.98 10^6/uL (4.35-5.55); RED CELL DISTRIBUTION WIDTH 13.1 % (11.5-14.0); SEGMENTED NEUTROPHILS % (AUTO) 75.2 % (42-78); TOTAL CELLS COUNTED % (AUTO) 100 %; WHITE BLOOD COUNT 7.9 10^3/uL (4.0-10.5)
[2017-09-06] MEDS: LISINOPRIL 10 MG TABLET PO SCH (10:14)
[2017-09-06] MEDS: CYANOCOBALAMIN (VITAMIN B-12) 1,000 MCG TABLET PO SCH (10:15)
[2017-09-06] MEDS ORDERED: ACETAMINOPHEN 325 MG TABLET ONE (10:41)
--- NOTE | 2017-09-06 11:37 | PDOC PROGRESS REPORT ---
Subjective Progress Note for:: 09/06/17 Subjective:: Patient without complaints today. He is feeling well. He is now tolerating liquid diet and has been up walking some. Pain controlled. ROS: No dyspnea. No dysuria. Reason For Visit: UPPER RECTAL NEOPLASMS Physical Exam Vital Signs: Temp Pulse Resp BP Pulse Ox 98.2 F 58 L 16 174/84 H 97 09/06/17 07:45 09/06/17 07:45 09/06/17 07:45 09/06/17 07:45 09/06/17 07:45 Intake & Output 09/05/17 09/06/17 09/07/17 06:59 06:59 06:59 Intake Total 2302 2339 Output Total 2200 1800 Balance 102 539 Weight 98.9 kg 97.9 kg General appearance: PRESENT: no acute distress, well-nourished Exam: 71 year old male, sitting up on the side of the bed. Head exam: PRESENT: atraumatic Mouth exam: PRESENT: other - NG tube has been removed. Respiratory exam: PRESENT: crackles, unlabored Cardiovascular exam: PRESENT: RRR Neurological exam: PRESENT: alert, awake Psychiatric exam: PRESENT: appropriate affect Results Laboratory Results: 09/06/17 08:24 09/05/17 09:30 09/06/17 08:24 WBC 7.9 RBC 3.98 L Hgb 12.8 L Hct 36.8 L MCV 93 MCH 32.2 MCHC 34.8 RDW 13.1 Plt Count 345 Seg Neutrophils % 75.2 Lymphocytes % 16.5 Monocytes % 5.8 Eosinophils % 2.0 Basophils % 0.5 Absolute Neutrophils 6.0 Absolute Lymphocytes 1.3 Absolute Monocytes 0.5 Absolute Eosinophils 0.2 Absolute Basophils 0.0 Assessment & Plan - Diagnosis (1) Rectal cancer Is this a current diagnosis for this admission?: Yes Plan: I gave patient a copy of the final pathology report. All questions were answered to the best of my ability. He understands plan is for some chemotherapy and some radiation and concurrent chemotherapy. This will begin once he has recovered form surgery. (2) Kidney mass Is this a current diagnosis for this admission?: Yes Plan: Awaiting plans per urology. Consider Biopsy of the lesion. - Plan Summary Plan Summary: I will be happy to continue to follow patient after discharge, but results from kidney will need to be known prior to any further therapy for his cancer.
[2017-09-06] MEDS: ACETAMINOPHEN 325 MG TABLET PO PRN ×2 (16:13→22:19)
--- NOTE | 2017-09-06 21:27 | PDOC PROGRESS REPORT ---
Subjective Progress Note for:: 09/06/17 Subjective:: Passed flatus and had BM Reason For Visit: UPPER RECTAL NEOPLASMS Physical Exam Vital Signs: Temp Pulse Resp BP Pulse Ox 97.9 F 65 16 165/90 H 98 09/06/17 15:20 09/06/17 15:20 09/06/17 15:20 09/06/17 15:20 09/06/17 15:20 Intake & Output 09/05/17 09/06/17 09/07/17 06:59 06:59 06:59 Intake Total 2302 2339 480 Output Total 2200 1800 1150 Balance 102 539 -670 Weight 98.9 kg 97.9 kg Exam: Abd soft minimal tenderness Results Laboratory Results: 09/06/17 08:24 09/05/17 09:30 09/06/17 08:24 WBC 7.9 RBC 3.98 L Hgb 12.8 L Hct 36.8 L MCV 93 MCH 32.2 MCHC 34.8 RDW 13.1 Plt Count 345 Seg Neutrophils % 75.2 Lymphocytes % 16.5 Monocytes % 5.8 Eosinophils % 2.0 Basophils % 0.5 Absolute Neutrophils 6.0 Absolute Lymphocytes 1.3 Absolute Monocytes 0.5 Absolute Eosinophils 0.2 Absolute Basophils 0.0 Assessment & Plan - Time Time Spent with patient: 15-24 minutes - Plan Summary Plan Summary: Started on clears and advance to full liquids as tolerated
[2017-09-06] MEDS: SIMVASTATIN 10 MG TABLET PO SCH (22:19)
[2017-09-07] MEDS: FAMOTIDINE INJ/PF 20 MG/2 ML SDV IV SCH ×2 (05:07→18:18)
[2017-09-07] MEDS: CYANOCOBALAMIN (VITAMIN B-12) 1,000 MCG TABLET PO SCH (10:10)
[2017-09-07] MEDS: LISINOPRIL 10 MG TABLET PO SCH (10:10)
[2017-09-07] MEDS: SIMVASTATIN 10 MG TABLET PO SCH (21:13)
[2017-09-07] MEDS: ACETAMINOPHEN 325 MG TABLET PO PRN (21:23)
--- NOTE | 2017-09-07 22:02 | PDOC PROGRESS REPORT ---
Subjective Progress Note for:: 09/07/17 Subjective:: + Flatus. Tolerating diet. No BM yet Reason For Visit: UPPER RECTAL NEOPLASMS Physical Exam Vital Signs: Temp Pulse Resp BP Pulse Ox 97.6 F 87 20 156/93 H 95 09/07/17 19:58 09/07/17 19:58 09/07/17 19:58 09/07/17 19:58 09/07/17 19:58 Intake & Output 09/06/17 09/07/17 09/08/17 06:59 06:59 06:59 Intake Total 2339 940 240 Output Total 1800 2150 300 Balance 539 -1210 -60 Weight 97.9 kg 97 kg Exam: abdomen soft and nontender Results Laboratory Results: 09/06/17 08:24 09/05/17 09:30 Assessment & Plan - Time Time Spent with patient: 15-24 minutes - Plan Summary Plan Summary: Continue to increase diet. Possible discharge tomorrow
[2017-09-08] MEDS: FAMOTIDINE INJ/PF 20 MG/2 ML SDV IV SCH (05:47)
[2017-09-08] MEDS: LISINOPRIL 10 MG TABLET PO SCH (09:18)
[2017-09-08] MEDS: CYANOCOBALAMIN (VITAMIN B-12) 1,000 MCG TABLET PO SCH (09:23)
--- NOTE | 2017-09-08 15:30 | PDOC PROGRESS REPORT ---
Subjective Progress Note for:: 09/08/17 Subjective:: Feels well. No abdominal pain. Had a bowel movement. Tolerating diet well. Reason For Visit: UPPER RECTAL NEOPLASMS Physical Exam Vital Signs: Temp Pulse Resp BP Pulse Ox 97.6 F 71 17 181/90 H 100 09/08/17 10:00 09/08/17 10:00 09/08/17 10:00 09/08/17 10:00 09/08/17 10:00 Intake & Output 09/07/17 09/08/17 09/09/17 06:59 06:59 06:59 Intake Total 1135 520 Output Total 2150 300 Balance -1015 220 Weight 97 kg 95.2 kg General appearance: PRESENT: no acute distress, cooperative Respiratory exam: PRESENT: clear to auscultation alisha Cardiovascular exam: PRESENT: RRR GI/Abdominal exam: PRESENT: other - Soft, nondistended, nontender to palpation. Clean dry and intact. Extremities exam: PRESENT: other - No swelling and no tenderness Results Laboratory Results: 09/06/17 08:24 09/05/17 09:30 Assessment & Plan - Diagnosis (1) Rectal neoplasm Is this a current diagnosis for this admission?: Yes (2) Rectal cancer Is this a current diagnosis for this admission?: Yes Plan: T2 N1 upper rectal cancer status post low anterior resection. Patient looks good. Tolerating diet well. Good bowel function. Will discharge patient home.
[2017-09-08 16:19] VITALS: BP 146/79
--- NOTE | 2017-09-08 19:33 | DISCHARGE SUMMARY E ---
Discharge Summary NAME: SELVIN AMEZQUITA : 1945 AGE: 71Y ADMITTED: 09/02/2017 DISCHARGED: 09/08/2017 DISCHARGE DIAGNOSES: 1. Upper rectal cancer. 2. Renal mass. PROCEDURE PERFORMED DURING HOSPITALIZATION: Low anterior resection with mobilization of the splenic flexure performed by Dr. Renee Holguin on September 02, 2017. HOSPITAL COURSE: The patient underwent the abovementioned surgery. He did well postoperatively. He had a gradual resumption of bowel function. He was tolerating a diet well at the time of discharge. He had minimal abdominal discomfort. He required no more pain medication. The patient has now been discharged to home in good condition. He will follow up with me this Friday for staple removal. He is encouraged to stay active at home but avoid strenuous activity. He may resume a cardiac diet at home. He may resume his home medications. No additional medications on discharge. Of note, Urology as well as Oncology has seen the patient in the hospital. We will arrange outpatient followup for his adjuvant therapy for his upper rectal cancer and for further workup and therapy for his suspicious kidney mass by Urology. DICTATING PHYSICIAN: RENEE HOLGUIN M.D. [id number] PHY#: [id number] ID: [id number] JOB#: [id number] ACCT: [id number] cc:RENEE HOLGUIN M.D. >
== END 2017-09-08 16:35 | disposition home or self-care (01) | DRG 331 ==
LOC: INOR 12:01 → 5 20:12
PROVIDERS: ADMIT Surgery; ATTEND Surgery
PROC: 0DBN0ZZ Excision of Sigmoid Colon, Open Approach (ICD-10-PCS; principal; 2017-09-02 14:00)
DX: C20 Malignant neoplasm of rectum (principal); N28.89 Other specified disorders of kidney and ureter; I10 Essential (primary) hypertension; Z96.611 Presence of right artificial shoulder joint; M19.90 Unspecified osteoarthritis, unspecified site; Z88.2 Allergy status to sulfonamides; Z79.82 Long term (current) use of aspirin; Z82.49 Family history of ischemic heart disease and other diseases of the circulatory system; Z83.3 Family history of diabetes mellitus
CPT/HCPCS: 36415; 80048; 82378; 840; 85025; 85027; 88307; 93005; 93010; J0131; J0330; J0360; J1100; J1170; J1335; J1885; J2250; J2405; J2704; J3010; J3490; J7030; S0028

== ENCOUNTER 2017-09-23 10:52 | Emergency (ER) | payer OTHER, MEDICARE ==
[2017-09-23] MEDS ORDERED: ONDANSETRON HCL INJ/PF 4 MG/2 ML SDV IV ONE (11:10)
--- NOTE | 2017-09-23 11:11 | ER Document Report ---
ED Medical Screen (RME) - General Chief Complaint: Dizziness Stated Complaint: DIZZY Time Seen by Provider: 09/23/17 11:09 Mode of Arrival: Wheelchair Information source: Patient Notes: This is a 72-year-old man brought over from outpatient CT scan for dizziness. Patient was recently diagnosed with colon cancer and is status post partial colectomy 2 weeks ago (Dr. Gerardo). The patient was getting an outpatient CT of the abdomen (with oral and IV contrast). He states that every time he tried to lie down, he had a sensation of disequilibrium and felt very nauseous. He was unable to undergo the test. He was sent here for evaluation. TRAVEL OUTSIDE OF THE [place] IN LAST 30 DAYS: No - Related Data Allergies/Adverse Reactions: Sulfa (Sulfonamide Antibiotics) Allergy (Intermediate, Verified 09/23/17 10:54) Generalized Itching Past Medical History - Social History Frequency of alcohol use: None Drug Abuse: None - Past Medical History Cardiac Medical History: Reports: Hx Hypertension Denies: Hx Atrial Fibrillation, Hx Congestive Heart Failure, Hx Coronary Artery Disease, Hx Heart Attack, Hx Hypercholesterolemia, Hx Peripheral Vascular Disease, Hx Heart Murmur Pulmonary Medical History: Denies: Hx Asthma, Hx Bronchitis, Hx COPD, Hx Pneumonia Neurological Medical History: Denies: Hx Cerebrovascular Accident, Hx Seizures Renal/ Medical History: Denies: Hx Benign Prostatic Hyperplasia, Hx End Stage Renal Disease, Hx Kidney Stones, Hx Peritoneal Dialysis Musculoskeltal Medical History: Reports Hx Arthritis, Denies Hx Fibromyalgia, Denies Hx Muscular Dystrophy Psychiatric Medical History: Denies: Hx Bipolar Disorder, Hx Depression, Hx Post Traumatic Stress Disorder , Hx Schizophrenia Traumatic Medical History: Denies: Hx Fractures Past Surgical History: Reports: Other - Shoulder replacement 05/2017. [place] teeth extraction. Denies: Hx Appendectomy, Hx Bowel Surgery, Hx Cholecystectomy , Hx Coronary Artery Bypass Graft, Hx Gastric Bypass Surgery, Hx Herniorrhaphy, Hx Pacemaker, Hx Tonsillectomy - Immunizations Hx Diphtheria, Pertussis, Tetanus Vaccination: No History of Influenza Vaccine for 04/2017 - 09/2017 Season: Yes Influenza Administration Date for 04/2017 - 09/2017 Season: 05/07/17 Physical Exam - Vital signs Vitals: Temp Pulse Resp BP Pulse Ox 97.5 F 78 16 157/98 H 98 09/23/17 10:57 09/23/17 10:57 09/23/17 10:57 09/23/17 10:57 09/23/17 10:57 Course - Vital Signs Vital signs: Temp Pulse Resp BP Pulse Ox 97.5 F 78 16 157/98 H 98 09/23/17 10:57 09/23/17 10:57 09/23/17 10:57 09/23/17 10:57 09/23/17 10:57
[2017-09-23 11:29] LABS: ABSOLUTE BASOPHILS # (AUTO) 0.1 10^3/uL (0.0-0.2); ABSOLUTE EOSINOPHILS # (AUTO) 0.2 10^3/uL (0.0-0.6); ABSOLUTE LYMPHOCYTES (AUTO) 1.7 10^3/uL (0.5-4.7); ABSOLUTE MONOCYTES (AUTO) 0.6 10^3/uL (0.1-1.4); ABSOLUTE NEUT (AUTO) 4.8 10^3/uL (1.7-8.2); BASOPHILS % (AUTO) 0.9 % (0-2); EOSINOPHILS % (AUTO) 2.9 % (0-6); HEMATOCRIT 41.9 % (37.9-51.0); HEMOGLOBIN 14.4 g/dL (13.5-17.0); LYMPHOCYTES % (AUTO) 22.6 % (13-45); MEAN CORPUSCULAR HEMOGLOBIN 31.6 pg (27.0-33.4); MEAN CORPUSCULAR HGB CONC 34.3 g/dL (32.0-36.0); MEAN CORPUSCULAR VOLUME 92 fl (80-97); MONOCYTES % (AUTO) 8.6 % (3-13); PLATELET COUNT 446 10^3/uL (150-450); RED BLOOD COUNT 4.55 10^6/uL (4.35-5.55); RED CELL DISTRIBUTION WIDTH 13.4 % (11.5-14.0); TOTAL CELLS COUNTED % (AUTO) 100 %; WHITE BLOOD COUNT 7.4 10^3/uL (4.0-10.5)
[2017-09-23 11:53] LABS: ALANINE AMINOTRANSFERASE 50 U/L (21-72); ALBUMIN 4.4 g/dL (3.5-5.0); ALKALINE PHOSPHATASE 67 U/L (38-126); ANION GAP 9 (5-19); ASPARTATE AMINO TRANSFERASE 26 U/L (17-59); BILIRUBIN,DIRECT 0.4 mg/dL (0.0-0.4); BILIRUBIN,TOTAL 0.7 mg/dL (0.2-1.3); BLOOD UREA NITROGEN 12 mg/dL (7-20); CARBON DIOXIDE 25 mmol/L (22-30); CHLORIDE 106 mmol/L (98-107); GLUCOSE 102 mg/dL (75-110); POTASSIUM 4.6 mmol/L (3.6-5.0); SODIUM 140.2 mmol/L (137-145); TOTAL PROTEIN 7.8 g/dL (6.3-8.2)
[2017-09-23] MEDS ORDERED: NORMAL SALINE 1000 ML 1,000 ML IV ONE (11:54)
--- NOTE | 2017-09-23 11:54 | ER Document Report ---
ED General - General Chief Complaint: Dizziness Stated Complaint: DIZZY Time Seen by Provider: 09/23/17 11:09 Mode of Arrival: Wheelchair Notes: 72-year-old male with past medical history as recorded who underwent a partial colonic resection around 2 weeks ago by the surgeon Dr. Gerardo secondary to colon cancer who is here for a CT scan of the abdomen and pelvis ordered by the patient's oncologist Dr. Sears secondary to a kidney lesion. Patient states he was not able to eat or drink since yesterday at 4 PM other than contrast. He states when he laid down to have the CT scan performed he felt a little "dizzy and nauseous". He states it lasted around half hour. He denies any symptoms at this time. He denies specifically any headache, neck pain, vomiting, chest pain, abdominal pain, weakness or numbness. Patient believes it is secondary to being "hungry and thirsty". The CT scan was not performed. TRAVEL OUTSIDE OF THE [place] IN LAST 30 DAYS: No - HPI Onset: Other - See above Onset/Duration: Sudden Quality of pain: No pain Severity: Mild Pain Level: Denies Associated symptoms: Other - See above Exacerbated by: Denies Relieved by: Denies Similar symptoms previously: No Recently seen / treated by doctor: Yes - Related Data Allergies/Adverse Reactions: Sulfa (Sulfonamide Antibiotics) Allergy (Intermediate, Verified 09/23/17 10:54) Generalized Itching Past Medical History - General Information source: Patient - Social History Smoking Status: Never Smoker Cigarette use (# per day): No Chew tobacco use (# tins/day): No Smoking Education Provided: No Frequency of alcohol use: None Drug Abuse: None Family History: None Patient has suicidal ideation: No Patient has homicidal ideation: No - Past Medical History Cardiac Medical History: Reports: Hx Hypertension Denies: Hx Atrial Fibrillation, Hx Congestive Heart Failure, Hx Coronary Artery Disease, Hx Heart Attack, Hx Hypercholesterolemia, Hx Peripheral Vascular Disease, Hx Heart Murmur Pulmonary Medical History: Denies: Hx Asthma, Hx Bronchitis, Hx COPD, Hx Pneumonia Neurological Medical History: Denies: Hx Cerebrovascular Accident, Hx Seizures Renal/ Medical History: Denies: Hx Benign Prostatic Hyperplasia, Hx End Stage Renal Disease, Hx Kidney Stones, Hx Peritoneal Dialysis Musculoskeltal Medical History: Reports Hx Arthritis, Denies Hx Fibromyalgia, Denies Hx Muscular Dystrophy Psychiatric Medical History: Denies: Hx Bipolar Disorder, Hx Depression, Hx Post Traumatic Stress Disorder , Hx Schizophrenia Traumatic Medical History: Denies: Hx Fractures Past Surgical History: Reports: Other - Shoulder replacement 05/2017. [place] teeth extraction. Denies: Hx Appendectomy, Hx Bowel Surgery, Hx Cholecystectomy , Hx Coronary Artery Bypass Graft, Hx Gastric Bypass Surgery, Hx Herniorrhaphy, Hx Pacemaker, Hx Tonsillectomy - Immunizations Hx Diphtheria, Pertussis, Tetanus Vaccination: No Hx Pneumococcal Vaccination: 05/07/17 Review of Systems - Review of Systems Constitutional: denies: Fever EENT: denies: Eye discharge, Nose discharge Cardiovascular: denies: Chest pain, Palpitations Respiratory: denies: Short of breath Gastrointestinal: Nausea. denies: Vomiting Genitourinary: denies: Dysuria Musculoskeletal: denies: Leg swelling Skin: Other - no hives. denies: Rash Neurological/Psychological: Other - no slurred speech -: Yes All other systems reviewed and negative Physical Exam - Vital signs Vitals: Temp Pulse Resp BP Pulse Ox 97.5 F 78 16 157/98 H 98 09/23/17 10:57 09/23/17 10:57 09/23/17 10:57 09/23/17 10:57 09/23/17 10:57 Notes: Reviewed vital signs and nursing note as charted by RN. CONSTITUTIONAL: Alert and oriented and responds appropriately to questions. Well -appearing; well-nourished HEAD: Normocephalic; atraumatic EYES: PERRL ENT: Normal nose; no rhinorrhea; moist mucous membranes; pharynx without lesions noted NECK: Supple without meningismus; non-tender; no carotid bruit; no cervical lymphadenopathy, no masses CARD: Regular rate and rhythm; no murmurs, no clicks, no rubs, no gallops; symmetric distal pulses RESP: Normal chest excursion without splinting or tachypnea; breath sounds clear and equal bilaterally ABD/GI: Normal bowel sounds; old midline surgical scar consistent with history without any signs of infection; non-distended; soft, non-tender, no abdominal masses or abdominal bruits present BACK: The back appears normal and is non-tender to palpation EXT: Normal ROM in all joints; non-tender to palpation; no edema SKIN: No acute lesions noted NEURO: Moves all extremities equally; Motor and sensory function intact PSYCH: The patient's mood and manner are appropriate. Grooming and personal hygiene are appropriate. Course - Re-evaluation Re-evalutation: 09/23/17 11:45 EKG shows a heart rate of 79, normal sinus rhythm, right bundle branch block and left anterior fascicular block. Nonspecific QRS widening. Old EKG from August 27, 2017 shows no appreciable change Given the above history, physical, no current symptoms at this time, no headache , chest pain, or palpitations, no carotid bruits or abdominal bruits, no eating since 4 PM last evening, I will provide a liter of fluid for rehydration and check a cardiac panel. I will see if we are able to perform the CT scan of the abdomen and pelvis with contrast here at this facility. I do not believe that the patient requires any imaging of the head at this time. 09/23/17 12:53 Labs and EKG as recorded. Patient still denies any symptomatology at this time. We will order the CT scan that the patient was supposed to have previously. 09/23/17 14:41 Labs as recorded. Patient is sitting in a chair not on the monitor stating and he feels "great" and would like to go home. I did obtain a CT scan of the abdomen and pelvis which shows no change from previous. I called and spoke to the oncologist Dr. Rand and have explained the history, physical, laboratory and CT findings. She states she will follow up with the patient in the office. Patient does not want a repeat troponin at this time. Patient understands we cannot fully evaluate his heart. Patient will be discharged home with strict return precautions and follow-up with the primary care physician and oncologist. - Vital Signs Vital signs: Temp Pulse Resp BP Pulse Ox 97.5 F 78 16 157/98 H 98 09/23/17 10:57 09/23/17 10:57 09/23/17 10:57 09/23/17 10:57 09/23/17 10:57 - Laboratory Result Diagrams: 09/23/17 11:16 09/23/17 11:16 Discharge - Discharge Clinical Impression: Dizziness, Kidney lesion Condition: Good Disposition: HOME, SELF-CARE Additional Instructions: Come back immediately for any repeat lightheadedness or dizziness, any chest pain, leg swelling, nausea or vomiting, or any other acute problems. Please follow-up with the primary care physician and oncologist as we have discussed. Referrals: KERON ALEXANDER, [Primary Care Provider] - Follow up as needed
--- NOTE | 2017-09-23 13:50 | RADIOLOGY REPORT (SQ) ---
EXAM DESCRIPTION: CT CHEST WITH COMPLETED DATE/TIME: 09/23/2017 1:18 pm REASON FOR STUDY: ABNORMAL EKG COMPARISON: None. TECHNIQUE: CT scan of the chest performed using helical scanning technique with dynamic intravenous contrast injection. Images reviewed with lung, soft tissue and bone windows. Reconstructed coronal and sagittal MPR images reviewed. All images stored on PACS. All CT scanners at this facility use dose modulation, iterative reconstruction, and/or weight based d osing when appropriate to reduce radiation dose to as low as reasonably achievable (ALARA). [facility]: Dose Right [facility]: CareDose [facility]: Dose Right [facility]: Teradose 4D [facility]: [facility] CONTRAST TYPE AND DOSE: contrast/concentration: Isovue 370.00 mg/ml; Total Contrast Delivered: 99.0 ml; Total Saline Delivered: 57.0 ml RENAL FUNCTION: Creatinine 0.71 RADIATION DOSE: CT Rad equipment meets quality standard of care and radiation dose reduction techniq ues were employed. CTDIvol: 16.1 - 19.9 mGy. DLP: 2476 mGy-cm. . LIMITATIONS: Study is limited somewhat due to artifact related to a right shoulder prosthesis. FINDINGS: LUNGS AND PLEURA: No opacities, nodules, masses. No pneumothorax. No effusions. HILAR AND MEDIASTINAL STRUCTURES: No identified masses or abnormal nodes. HEART AND VASCULAR STRUCTURES: No aneurysm or dissection. No central pulmonary emboli. No pericardi al effusion. HARDWARE: None in the chest. UPPER ABDOMEN: See results under abdominal CT scan THYROID AND OTHER SOFT TISSUES: No masses. No adenopathy. BONES: No significant finding. OTHER: No other significant finding. IMPRESSION: No significant intrathoracic abnormalities were identified. Findings as noted above TECHNICAL DOCUMENTATION: JOB ID: [id number] Quality ID # [id number]: Final reports with documentation of one or more dose reduction techniques (e.g., Au tomated exposure control, adjustment of the mA and/or kV according to patient size, use of iterative reconstruction technique) 2010 [employer]- All Rights Reserved Reading location - IP/workstation name: [email or web address]
--- NOTE | 2017-09-23 14:02 | RADIOLOGY REPORT (SQ) ---
EXAM DESCRIPTION: CT ABD/PELVIS WITH IV ONLY COMPLETED DATE/TIME: 09/23/2017 1:18 pm REASON FOR STUDY: 11, ct abd/pel; liver mass COMPARISON: February 2017 TECHNIQUE: CT scan of the abdomen and pelvis performed using helical scanning technique with dynamic intravenous contrast injection. No oral contrast. Images reviewed with lung, soft tissue, and bone windows. Reconstructed coronal and sagittal MPR images reviewed. Delayed images for evaluation of the urinary system also acquired. All images stored on PACS. All CT scanners at this facility use dose modulation, iterative reconstruction, and/or weight based d osing when appropriate to reduce radiation dose to as low as reasonably achievable (ALARA). [facility]: Dose Right [facility]: CareDose [facility]: Dose Right [facility]: Teradose 4D [facility]: [employer] CONTRAST TYPE AND DOSE: 99 mL Isovue 370 RENAL FUNCTION: Creatinine 0.71 RADIATION DOSE: . LIMITATIONS: None. FINDINGS: LOWER CHEST: See results under chest CT scan LIVER: Normal size. No masses. No dilated ducts. SPLEEN: Normal size. No focal lesions. PANCREAS: No masses. No significant calcifications. No adjacent inflammation or peripancreatic fluid collections. Pancreatic duct not dilated. GALLBLADDER: No identified stones by CT criteria. No inflammatory changes to suggest cholecystitis. ADRENAL GLANDS: No significant masses or asymmetry. RIGHT KIDNEY AND URETER: No solid masses. Small renal cyst in the upper pole appears stable. No sig nificant calcifications. No hydronephrosis or hydroureter. LEFT KIDNEY AND URETER: The previously described 2 cm mildly enhancing left upper pole renal cortical mass is again identified and appears essentially unchanged. No significant calcifications. No hy dronephrosis or hydroureter. AORTA AND VESSELS: No aneurysm. No dissection. Renal arteries, SMA, celiac without stenosis. RETROPERITONEUM: No retroperitoneal adenopathy, hemorrhage or masses. BOWEL AND PERITONEAL CAVITY: No masses or inflammatory changes. No free fluid or peritoneal masses. APPENDIX: Normal. PELVIS: No mass. No free fluid. Again there is some prominence of the prostate gland with a prostat ic impression on the bladder base ABDOMINAL WALL: No masses. The previously described fat containing bilateral inguinal hernias appear s stable P. BONES: No significant or acute findings. OTHER: No other significant finding. IMPRESSION: The previously described solid enhancing nodule in the upper pole of the left kidney ansley ears stable. No other significant intra- abdominal or pelvic abnormalities were identified. Other f indings as noted above. TECHNICAL DOCUMENTATION: JOB ID: [id number] Quality ID # [id number]: Final reports with documentation of one or more dose reduction techniques (e.g., Au tomated exposure control, adjustment of the mA and/or kV according to patient size, use of iterative reconstruction technique) 2010 [employer] ([employer])- All Rights Reserved Reading location - IP/workstation name: [email or web address]
--- NOTE | 2017-09-23 15:47 | EKG REPORT ---
SEVERITY:- ABNORMAL ECG - SINUS RHYTHM RBBB AND LAFB : Confirmed by: Chava Arguello 23-Sep-2017 15:46:45
[2017-09-23 15:59] VITALS: BP 156/93
== END 2017-09-23 15:59 | disposition home or self-care (01) ==
LOC: ER 10:52
DX: R42 Dizziness and giddiness (principal); N28.9 Disorder of kidney and ureter, unspecified; R11.0 Nausea; I10 Essential (primary) hypertension; I45.2 Bifascicular block; Z90.49 Acquired absence of other specified parts of digestive tract; Z85.038 Personal history of other malignant neoplasm of large intestine; Z88.2 Allergy status to sulfonamides
CPT/HCPCS: 93005; 99284; 96361; 96374; 36415; 83735; 85025; 80053; 84484; 71260; 74177; 93010; J2405; J7030

== ENCOUNTER → 2017-09-23 | Outpatient (CLI) | payer MEDICARE | LOC: RAD 08:59 | PROVIDERS: ATTEND Internal Medicine Hematology & Oncology | DX: C18.7 Malignant neoplasm of sigmoid colon (principal); Z53.8 Procedure and treatment not carried out for other reasons ==

== ENCOUNTER 2017-09-30 10:05 | Day surgery (SDC) | payer OTHER, MEDICARE ==
[~2017-09-30 10:05] MED LIST changes: +CEFAZOLIN 1 GM/D5W RTU 1 GM/50 ML RTUPB IV PRN; +DEXTROSE 5%-1/2 NORMAL SALINE 1,000 ML IV PRN; +DIAZEPAM 5 MG TABLET PO PRN; -ERTAPENEM SODIUM 1 GM in NORMAL SALINE 100 ML IV PRN; -GLYCOPYRROLATE INJ 0.4 MG/2 ML VIAL ONE; -LACTATED RINGERS 1000 ML IV PRN; -LIDOCAINE 0.5% INJ-PF (5 MG/ML) 50 ML SDV SUBCUT PRN; -NEOSTIGMINE METHYLSULFATE 10 MG/10 ML VIAL ONE; +OXYCODONE-ACETAMINOPHEN 5-325 MG TABLET PO PRN; -ROCURONIUM BROMIDE INJ 50 MG/5 ML VIAL IV ONE; -SUCCINYLCHOLINE CHLORIDE INJ 200 MG/10 ML VIAL ONE; -VECURONIUM BROMIDE INJ 10 MG VIAL IV ONE
[2017-09-30] MEDS ORDERED: OXYCODONE-ACETAMINOPHEN 5-325 MG TABLET ONE (10:07)
[2017-09-30] MEDS ORDERED: DIAZEPAM 5 MG TABLET ONE (10:07)
[2017-09-30] MEDS ORDERED: CEFAZOLIN 1 GM/D5W RTU 0 GM/0 ML RTUPB IV ONE (10:07)
[2017-09-30 10:52] LABS: HEMATOCRIT 41.1 % (37.9-51.0); HEMOGLOBIN 13.8 g/dL (13.5-17.0); MEAN CORPUSCULAR HEMOGLOBIN 31.1 pg (27.0-33.4); MEAN CORPUSCULAR HGB CONC 33.5 g/dL (32.0-36.0); MEAN CORPUSCULAR VOLUME 93 fl (80-97); PLATELET COUNT 341 10^3/uL (150-450); RED BLOOD COUNT 4.43 10^6/uL (4.35-5.55); RED CELL DISTRIBUTION WIDTH 13.4 % (11.5-14.0); WHITE BLOOD COUNT 6.4 10^3/uL (4.0-10.5)
--- NOTE | 2017-09-30 11:02 | RADIOLOGY REPORT (SQ) ---
EXAM DESCRIPTION: CHEST SINGLE VIEW COMPLETED DATE/TIME: 09/30/2017 10:06 am REASON FOR STUDY: PRE OP, EU 5 COMPARISON: None. EXAM PARAMETERS: NUMBER OF VIEWS: One view. TECHNIQUE: Single frontal radiographic view of the chest acquired. RADIATION DOSE: NA LIMITATIONS: None. FINDINGS: LUNGS AND PLEURA: No opacities, masses or pneumothorax. No pleural effusion. MEDIASTINUM AND HILAR STRUCTURES: No masses. Contour normal. HEART AND VASCULAR STRUCTURES: Heart normal in size. Normal vasculature. BONES: No acute findings. HARDWARE: None in the chest. OTHER: No other significant finding. IMPRESSION: NO ACUTE RADIOGRAPHIC FINDING IN THE CHEST. TECHNICAL DOCUMENTATION: JOB ID: [id number] [employer]- All Rights Reserved Reading location - IP/workstation name: [email or web address]
[2017-09-30 11:12] LABS: ANION GAP 10 (5-19); BLOOD UREA NITROGEN 15 mg/dL (7-20); CALCIUM 9.9 mg/dL (8.4-10.2); CARBON DIOXIDE 26 mmol/L (22-30); CHLORIDE 104 mmol/L (98-107); GLUCOSE 111 mg/dL (75-110); POTASSIUM 4.5 mmol/L (3.6-5.0); SODIUM 139.8 mmol/L (137-145)
[2017-09-30] MEDS ORDERED: FENTANYL CITRATE INJ/PF 100 MCG/2 ML AMPUL ONE (11:13)
[2017-09-30] MEDS ORDERED: BACITRACIN INJ 50,000 UNIT VIAL ONE (11:13)
[2017-09-30] MEDS ORDERED: LIDOCAINE 0.5% INJ-PF (5 MG/ML) 50 ML SDV ONE (11:13)
[2017-09-30] MEDS ORDERED: MIDAZOLAM 2 MG/2 ML INJ ONE (11:13)
[2017-09-30] MEDS ORDERED: CEFAZOLIN INJ 1 GM VIAL ONE (11:37)
--- NOTE | 2017-09-30 12:47 | Discharge Summary ---
Discharge Summary (SDC) - Discharge Final Diagnosis: #1 rectal cancer. 2. Hypertension. Date of Surgery: 09/30/17 Discharge Date: 09/30/17 Condition: Good Treatment or Instructions: Discharge home [after recovery per ASU criteria]. Diet ,as tolerated, when fully awake advance as tolerated. Activities within moderation encouraged. Follow up in my office by appointment in about [1 week]. Call for appointment. Leave wounds [covered], [keep clean and dry, until office visit in 1 week]. Meds per med rec. Percocet. Hold of on school/work [until evaluation in office]. May shower [in 48 hrs], [try to keep operated area as dry as possible]. Prescriptions: Oxycodone HCl/Acetaminophen [Percocet 5-325 mg Tablet] 1 tab PO ASDIR PRN #15 tab PRN Reason: Referrals: KERON ALEXANDER DO [Primary Care Provider] -
--- NOTE | 2017-09-30 12:50 | Operative Report ---
Operative Report DATE OF SURGERY: 09/30/17 PREOPERATIVE DIAGNOSIS: #1 rectal cancer. 2. Hypertension. POSTOPERATIVE DIAGNOSIS: #1 rectal cancer. 2. Hypertension. OPERATION: 1. Ultrasound evaluation is in the right internal jugular vein. 2. Port-A-Cath insertion via real-time ultrasound-guided access of the right internal jugular vein. 3. Angiogram and interpretation. SURGEON: SERGEY MAR TECHNICIAN HELPER INSTRUMENT: None ANESTHESIA: Moderate Sedation TISSUE REMOVED OR ALTERED: Not applicable. COMPLICATIONS: None. ESTIMATED BLOOD LOSS: 5 mL. INTRAOPERATIVE FINDINGS: Of a satisfactory right internal jugular vein, about 1.5 cm. Satisfactory and safe access obtained. Satisfactory for support of Port-A-Cath. Tip of port just down in the right atrium on angiogram. Easy egress of blood and ingress of heparinized solution. Angiogram demonstrated smooth flow of contrast through the right atrium, ventricle and pulmonary outflow tract. PROCEDURE: After obtaining informed consent, the patient was taken to the Dealer Analyst and positioned supine. The [right] neck and chest were prepared with chlorhexidine and draped out with sterile linen. After the " universal timeout", in which it was verified that the patient continued to receive antibiotic, the procedure commenced. A steriley sheathed ultrasound probe was used to evaluate the [ right] internal jugular vein. Local anesthesia was infiltrated adjacent to the probe. Access into the [right] internal jugular vein was obtained using a micropuncture needle, followed by micropuncture wire and then a micropuncture catheter. This was followed by introduction of a 0.035 guidewire the tip of which was placed down into the inferior vena cava . The port sites was marked , locally anesthetized and incision made. Dissection now proceeded to the deep subcutaneous subcutaneous tissues so that a pocket for the port was made. Meticulous hemostasis was secured and the catheter was tunneled between the 2 incisions. Proximally, the catheter was now positioned using a peel-away sheath. Distally the catheter was tailored to an appropriate length and then mated to the port using the contained fixating device. The port was now placed in the pocket and the catheter optimally positioned. The port was accessed with a Zamarripa needle and an angiogram done under digital subtraction. The findings as dictated. With adequate and satisfactory positioning, both lumens of the chamber were irrigated with heparinized solution. The wounds were now closed using interrupted 3-0 PDS to the subcutaneous tissues and a continuous subcuticular suture of 4-0 Monocryl to the skin. These are reinforced with Steri-Strips over benzoin and then dressings applied. Time: 0.4 minute. Dose: 7.14 m Gy Contrast: 5 mls. Isovue 300. Copies of the dictated operative report for Dr. Sergey Mendoza MD.
--- NOTE | 2017-09-30 12:58 | RADIOLOGY REPORT (SQ) ---
EXAM DESCRIPTION: PORTACATH INSERTION COMPLETED DATE/TIME: 09/30/2017 12:35 pm REASON FOR STUDY: C18.7 C18.7 MALIGNANT NEOPLASM OF SIGMOID COLON COMPARISON: None. FLUOROSCOPY TIME: 0.4 minutes Multiple images saved to PACS. TECHNIQUE: Intra-operative images acquired during surgical procedure to evaluate progress. NUMBER OF IMAGES: Cine fluoroscopic images. LIMITATIONS: None. FINDINGS: Selected images from right Port-A-Cath placement. Catheter tip overlies the SVC. IMPRESSION: IMAGE(S) OBTAINED DURING PROCEDURE. COMMENT: Quality ID 145: Final reports for procedures using fluoroscopy that document radiation exp osure indices, or exposure time and number of fluorographic images (if radiation exposure indices are not available) Please consult full operative report of the attending physician for description of the procedure. TECHNICAL DOCUMENTATION: JOB ID: [id number] [employer]- All Rights Reserved Reading location - IP/workstation name: [email or web address]
[2017-09-30 14:00] VITALS: BP 150/104
== END 2017-09-30 13:55 | disposition home or self-care (01) ==
LOC: CCL 10:05
PROVIDERS: ATTEND Surgery
DX: C20 Malignant neoplasm of rectum (principal); N28.89 Other specified disorders of kidney and ureter; I10 Essential (primary) hypertension; Z88.2 Allergy status to sulfonamides; Z79.899 Other long term (current) drug therapy; Z79.82 Long term (current) use of aspirin; Z86.010 Personal history of colon polyps
CPT/HCPCS: 36415; 85027; 80048; 36561; 76937; 77001; 71045; C1788; Q9967; J2250; J3490 ×2; J0690; J3010; J1644; C1769

== ENCOUNTER → 2017-12-25 | Outpatient (CLI) | payer MEDICARE ==
--- NOTE | 2017-12-25 09:05 | RADIOLOGY REPORT (SQ) ---
EXAM DESCRIPTION: CT ABDOMEN WITH IV ORAL CONT COMPLETED DATE/TIME: 12/25/2017 8:12 am REASON FOR STUDY: COLON CA (C18.7) C18.7 MALIGNANT NEOPLASM OF SIGMOID COLON COMPARISON: CT abdomen pelvis 09/23/2017, 02/12/2017 TECHNIQUE: CT scan of the abdomen performed with intravenous and without oral contrast using helical scanning technique with dynamic intravenous contrast injection. Images reviewed with lung, soft tiss ue, and bone windows. Reconstructed coronal and sagittal MPR images reviewed. Delayed images for eval uation of the urinary system also acquired and evaluated. All images stored on PACS. All CT scanners at this facility use dose modulation, iterative reconstruc tion, and/or weight based dosing when appropriate to reduce radiation dose to as low as reasonably ac hievable (ALARA). [facility]: Dose Right [facility]: CareDose [facility]: Dose Right [facility]: Teradose 4D [facility]: [employer] CONTRAST TYPE AND DOSE: contrast/concentration: Isovue 370.00 mg/ml; Total Contrast Delivered: 100.0 ml; Total Saline Delivered: 72.0 ml RENAL FUNCTION: Creatinine 0.9 RADIATION DOSE: CT Rad equipment meets quality standard of care and radiation dose reduction techniq ues were employed. CTDIvol: 14.5 - 16.5 mGy. DLP: 1193 mGy-cm. . LIMITATIONS: None. FINDINGS: LOWER CHEST: No significant findings. No nodules or infiltrates. LIVER: Normal size. No masses. No dilated ducts. SPLEEN: Normal size. No focal lesions. PANCREAS: No masses. No significant calcifications. No adjacent inflammation or peripancreatic fluid collections. Pancreatic duct not dilated. GALLBLADDER: No identified stones by CT criteria. No inflammatory changes to suggest cholecystitis. ADRENAL GLANDS: No significant masses or asymmetry. RIGHT KIDNEY AND URETER: No solid masses. 2 cm simple cyst right upper pole kidney. No significant calcifications. No hydronephrosis or hydroureter. LEFT KIDNEY AND URETER: 2 x 2 cm left upper pole renal cortical enhancing mass unchanged from and 09/23/2017. Worrisome for small renal cell carcinoma. No significant calcifications. No hyd ronephrosis or hydroureter. AORTA AND VESSELS: No aneurysm. No dissection. Renal arteries, SMA, celiac without stenosis. RETROPERITONEUM: No retroperitoneal adenopathy, hemorrhage or masses. BOWEL AND PERITONEAL CAVITY: No masses or inflammatory changes. No free fluid or peritoneal masses. APPENDIX: Not in the field of view ABDOMINAL WALL: No masses. No hernias. BONES: No significant or acute findings. OTHER: No other significant finding. IMPRESSION: Stable 2 cm enhancing left upper pole renal cortical solid nodule worrisome for small re nal cell carcinoma. TECHNICAL DOCUMENTATION: JOB ID: [id number] Quality ID # [id number]: Final reports with documentation of one or more dose reduction techniques (e.g., Au tomated exposure control, adjustment of the mA and/or kV according to patient size, use of iterative reconstruction technique) 2010 [employer]- All Rights Reserved Reading location - IP/workstation name: [email or web address]
== END ==
LOC: RAD 07:33
PROVIDERS: ATTEND Internal Medicine Hematology & Oncology
DX: C18.7 Malignant neoplasm of sigmoid colon (principal)
CPT/HCPCS: 74160

== ENCOUNTER 2018-09-11 12:49 | Day surgery (SDC) | payer OTHER, MEDICARE ==
[2018-09-04 09:53] LABS: HEMOGLOBIN 14.1 g/dL (13.5-17.0); MEAN CORPUSCULAR HEMOGLOBIN 33.1 pg (27.0-33.4); MEAN CORPUSCULAR HGB CONC 35.3 g/dL (32.0-36.0); MEAN CORPUSCULAR VOLUME 94 fl (80-97); PLATELET COUNT 296 10^3/uL (150-450); RED BLOOD COUNT 4.26 10^6/uL (4.35-5.55); RED CELL DISTRIBUTION WIDTH 12.9 % (11.5-14.0); WHITE BLOOD COUNT 6.1 10^3/uL (4.0-10.5)
[2018-09-04 10:18] LABS: ANION GAP 11 (5-19); BLOOD UREA NITROGEN 14 mg/dL (7-20); CARBON DIOXIDE 26 mmol/L (22-30); CHLORIDE 105 mmol/L (98-107); GLUCOSE 149 mg/dL (75-110); POTASSIUM 4.3 mmol/L (3.6-5.0); SODIUM 141.9 mmol/L (137-145)
--- NOTE | 2018-09-04 21:55 | EKG REPORT ---
SEVERITY:- ABNORMAL ECG - SINUS RHYTHM RBBB AND LAFB : Confirmed by: Chava Arguello 04-Sep-2018 21:55:08
[~2018-09-11 12:49] MED LIST changes: -CEFAZOLIN 1 GM/D5W RTU 1 GM/50 ML RTUPB IV PRN; +CEFAZOLIN 2 GM/D5W RTU 2 GM/50 ML RTUPB IV ONE; +CEFAZOLIN 2 GM/D5W RTU 2 GM/50 ML RTUPB IV PRN; -DEXTROSE 5%-1/2 NORMAL SALINE 1,000 ML IV PRN; -DIAZEPAM 5 MG TABLET PO PRN; +IBUPROFEN 800 MG in NORMAL SALINE 250 ML IV PRN; +LACTATED RINGERS 1000 ML IV PRN; +LIDOCAINE 0.5% INJ-PF (5 MG/ML) 50 ML SDV SUBCUT PRN; -OXYCODONE-ACETAMINOPHEN 5-325 MG TABLET PO PRN
--- NOTE | 2018-09-11 14:20 | RADIOLOGY REPORT (SQ) ---
EXAM DESCRIPTION: CHEST SINGLE VIEW COMPLETED DATE/TIME: 09/11/2018 2:07 pm REASON FOR STUDY: COUGH COMPARISON: 02/20/2011 EXAM PARAMETERS: NUMBER OF VIEWS: One view. TECHNIQUE: Single frontal radiographic view of the chest acquired. RADIATION DOSE: NA LIMITATIONS: None. FINDINGS: LUNGS AND PLEURA: No opacities, masses or pneumothorax. No pleural effusion. MEDIASTINUM AND HILAR STRUCTURES: No masses. Contour normal. HEART AND VASCULAR STRUCTURES: Heart normal in size. Normal vasculature. BONES: No acute findings. HARDWARE: Injection port on the right. OTHER: No other significant finding. IMPRESSION: NO ACUTE RADIOGRAPHIC FINDING IN THE CHEST. TECHNICAL DOCUMENTATION: JOB ID: [id number] [employer]- All Rights Reserved Reading location - IP/workstation name: [email or web address]
[2018-09-11] MEDS ORDERED: SUCCINYLCHOLINE CHLORIDE INJ 200 MG/10 ML VIAL ONE (14:27)
[2018-09-11] MEDS ORDERED: KETOROLAC TROMETHAMINE 60 MG/2 ML SDV ONE (14:27)
[2018-09-11] MEDS ORDERED: ROCURONIUM BROMIDE INJ 50 MG/5 ML VIAL IV ONE (14:27)
[2018-09-11] MEDS ORDERED: FENTANYL CITRATE INJ/PF 100 MCG/2 ML AMPUL ONE ×2 (14:49→17:42)
[2018-09-11] MEDS ORDERED: ONDANSETRON HCL INJ/PF 4 MG/2 ML SDV ONE (14:49)
[2018-09-11] MEDS ORDERED: DEXAMETHASONE SOD PHOSPHATE INJ 4 MG/1 ML VIAL ONE (14:49)
[2018-09-11] MEDS ORDERED: MIDAZOLAM 2 MG/2 ML INJ ONE (14:49)
[2018-09-11] MEDS ORDERED: ACETAMINOPHEN 1,000 MG/100 ML RTUPB IV ONE (14:50)
[2018-09-11] MEDS ORDERED: PROPOFOL INJ 200 MG/20 ML VIAL IV ONE (14:50)
[2018-09-11] MEDS ORDERED: BUPIVACAINE HCL 0.25 % INJ/PF (2.5 MG/1 ML) 30 ML VIAL ONE (15:07)
[2018-09-11] MEDS ORDERED: DIPHENHYDRAMINE HCL 50 MG/ML VIAL IV PRN (16:12)
[2018-09-11] MEDS ORDERED: MORPHINE SULFATE 10 MG/ML INJ IV PRN ×2 (16:12→19:27)
[2018-09-11] MEDS ORDERED: OXYCODONE-ACETAMINOPHEN 5-325 MG TABLET PO PRN ×2 (16:12)
[2018-09-11] MEDS ORDERED: PROMETHAZINE HCL INJ 25 MG/1 ML VIAL IV PRN ×2 (16:12)
[2018-09-11] MEDS ORDERED: FENTANYL CITRATE INJ/PF 100 MCG/2 ML AMPUL IV PRN ×3 (16:12)
[2018-09-11] MEDS ORDERED: MEPERIDINE HCL/PF INJ 25 MG/1 ML DISP.SYRIN IV PRN (16:12)
[2018-09-11] MEDS ORDERED: ONDANSETRON HCL INJ/PF 4 MG/2 ML SDV IV PRN (16:12)
[2018-09-11] MEDS ORDERED: HYDRALAZINE HCL INJ/PF 20 MG/1 ML SDV ONE (16:33)
[2018-09-11] MEDS: FENTANYL CITRATE INJ/PF 100 MCG/2 ML AMPUL ONE ×2 (18:20→18:25)
[2018-09-11] MEDS: HYDROCODONE/ACETAMINOPHEN 10-325 MG TABLET PO PRN (20:16)
[2018-09-11] MEDS: KETOROLAC TROMETHAMINE INJ/PF 30 MG/1 ML SDV IV SCH (21:25)
[2018-09-11] MEDS: FAMOTIDINE 20 MG TABLET PO SCH (21:26)
[2018-09-12] MEDS: KETOROLAC TROMETHAMINE INJ/PF 30 MG/1 ML SDV IV SCH ×2 (05:25→13:59)
[2018-09-12] MEDS: HYDROCODONE/ACETAMINOPHEN 10-325 MG TABLET PO PRN (08:03)
--- NOTE | 2018-09-12 08:06 | PDOC PROGRESS REPORT ---
Subjective Progress Note for:: 09/12/18 Subjective:: patient comfortable this AM Reason For Visit: K43.2 INCISIONAL HERNIA WITHOUT OBSTRUCTION OR JOSE Physical Exam Vital Signs: Temp Pulse Resp BP Pulse Ox 97.6 F 98 19 148/86 H 98 09/12/18 00:30 09/12/18 00:30 09/12/18 00:30 09/12/18 00:30 09/12/18 00:30 Intake & Output 09/11/18 09/12/18 09/13/18 06:59 06:59 07:59 Intake Total 2810 Output Total 1300 Balance 1510 Weight 102.5 kg General appearance: PRESENT: no acute distress Respiratory exam: PRESENT: clear to auscultation alisha Cardiovascular exam: PRESENT: RRR GI/Abdominal exam: PRESENT: soft, other - incisions c/d/i Results Laboratory Results: 09/04/18 08:55 09/04/18 08:55 Impressions: Chest X-Ray 09/11/18 00:00 IMPRESSION: NO ACUTE RADIOGRAPHIC FINDING IN THE CHEST. Assessment & Plan - Diagnosis (1) Incisional hernia Qualifiers: Obstruction and gangrene presence: without obstruction or gangrene Qu alified Code(s): K43.2 - Incisional hernia without obstruction or gangrene; K43.91 - Incisional hernia, without obstruction or gangrene Is this a current diagnosis for this admission?: Yes - Plan Summary Plan Summary: A/ POD#1 after open abdominal incisional herniorraphy withmesh patient VSS, AF No c/o, tolerating Ppo well Abdomen sft P/ Home today f/u with Dr. Winkler in 2 weeks no lifting> 10# x 3 months shower only x 2 weeks Pain meds as per Dr. Winkler Prune juice and fiber as neded for constipation
[2018-09-12] MEDS: FAMOTIDINE 20 MG TABLET PO SCH (09:32)
--- NOTE | 2018-09-12 09:53 | Operative Report ---
Nonrecallable Operative Report DATE OF SURGERY: 09/11/18 PREOPERATIVE DIAGNOSIS: Ventral incisional hernia POSTOPERATIVE DIAGNOSIS: same OPERATION: 1. Open repair of ventral incisional hernia (6x4 cm). 2. Implantation of Ventrio ST hernia mesh (17x13 cm) SURGEON: SHAYNE MONTOYA 1ST STACK SUPERVISOR: JESS CR ANESTHESIA: GA TISSUE REMOVED OR ALTERED: none COMPLICATIONS: none apparent ESTIMATED BLOOD LOSS: 25cc PROCEDURE: implants: 27l67ed Ventrio ST hernia Mesh Procedure in-detail: After informed consent was obtained, the pt was laid in the supine position in the operating room. The area of the abdomen was prepped and draped in a normal, sterile fashion. An incision was created within the bounds of his previous scar in the upper midline. The hernia sac was encountered early. There was falciform ligament and omentum within the hernia sac. This was reduced back into the abdomen. The falciform ligament was ligated and resected. Next, the hernia defect was inspected. It was found to be 6x4 cm. The hernia sac was then freed from the surrounding subcutaneous tissue and fascia. This was done with sharp dissection and electrocautery. Once the fascia was freed, the 17x13 cm hernia mesh was inserted into the abdomen. It was found to cover the defect very well. It was sutured to the anterior abdominal wall with 0 Prolene suture in circumferential mattress fashion. The midline fascia was then closed using #1 Prolene suture in [id number] fashion. After closure of the defect, there was a portion of extra skin (immediately overlying the hernia sac) that appeared thinned and unhealthy. This was resected. The subcutaneous tissues were reapproximated using 3-0 Vicryl suture in simple interrupted fashion. The overlying skin was closed with 4-0 Vicryl Rapide suture in subcuticular fashion. A dressing was placed and the procedure was concluded. All sponge, instrument, and needle counts were correct x2. Condition: Stable. Jess Cr PA-C was scrubbed and present the entire procedure. She assisted with all portions of the procedure including opening of the hernia, removal of the sac, placement of the mesh, sewing of the mesh, closure of the fascia, and closure of the skin.
[2018-09-12] MEDS ORDERED: LISINOPRIL 10 MG TABLET PO SCH (10:00)
[2018-09-12] MEDS ORDERED: (PENDING PHARMACY ID) (Lisinopril [Prinivil 20 Mg Tablet] 20 MG) PO SCH (10:00)
[2018-09-12] MEDS ORDERED: ASPIRIN 81 MG TABLET, CHEWABLE PO SCH (10:00)
[2018-09-12 16:04] VITALS: BP 159/80
[2018-09-12] MEDS ORDERED: (PENDING PHARMACY ID) (Pravastatin Sodium [Pravastatin Sodium] 10 MG) PO SCH (18:00)
--- NOTE | 2018-09-13 03:48 | DISCHARGE SUMMARY E ---
Discharge Summary NAME: SELVIN AMEZQUITA : 1945 AGE: 73Y ADMITTED: 09/11/2018 DISCHARGED: 09/12/2018 FINAL DIAGNOSIS: Postsurgical incisional ventral hernia. PROCEDURE: Open repair of postsurgical incisional ventral hernia with mesh. COMPLICATIONS: None. PROCEDURE DONE: September 11, 2018 HOSPITAL COURSE: A 73-year-old male status post laparoscopic colon resection for rectal cancer. The patient underwent repair of an incisional ventral hernia on September 11. The patient was admitted postoperatively for postop observation due to pain management. His pain was well controlled throughout the hospitalization. The day of the discharge, September 12, the patient's vital signs were stable, he was afebrile. His abdomen was soft. All incisions clean, dry, and intact, and the patient was tolerating p.o. well. DISCHARGE ORDERS: 1. The patient discharged to home on September 12. Followup in the office with Dr. Jenkins in 2 weeks. 2. No lifting more than 10 pounds for 2 months. 3. Shower immediately for 2 weeks. 4. The patient can bathe after 2 weeks. 5. No wound care needed. 6. Pain medication as per Dr. Jenkins. 7. Please resume regular diet and activities as above. DICTATING PHYSICIAN: MICHA MILES M.D. [id number] Y#: [id number] ID: [id number] JOB#: [id number] ACCT: [id number] cc:Tevin MONTESINOS M.D. > MTDD
== END 2018-09-12 19:00 | disposition home or self-care (01) ==
LOC: OROUT 12:49 → 4S 19:44 → OROUT 09-12 19:00
PROVIDERS: ATTEND Surgery
DX: K43.2 Incisional hernia without obstruction or gangrene (principal); C20 Malignant neoplasm of rectum; I10 Essential (primary) hypertension; Z86.010 Personal history of colon polyps; Z79.899 Other long term (current) drug therapy; Z79.82 Long term (current) use of aspirin
CPT/HCPCS: 93010; 93005; 36415; 85027; 80048; 71045; 49560; 49568; G0378 ×2; C1781; J2250; J3490; J1100; J1885 ×3; J3010; J0360; J0330; J2405; J7050; J7120; J2704; J0690; J0131; J1741; 752

== ENCOUNTER 2020-02-02 07:05 | Day surgery (SDC) | payer OTHER, MEDICARE ==
[2020-02-02] MEDS ORDERED: PROPOFOL INJ 200 MG/20 ML VIAL IV ONE (07:14)
[2020-02-02] MEDS ORDERED: LIDOCAINE 2% INJ (20 MG/ML) 20 ML MDV ONE (07:14)
--- NOTE | 2020-02-02 08:10 | Operative Report ---
Operative Report DATE OF SURGERY: 02/02/20 Operative Report: The risk, benefits and alternatives of the procedure including the risk of bleeding, perforation requiring surgery have been explained to the patient in detail and informed consent has been obtained. Patient is taken back to the endoscopy suite and placed in a left, lateral decubital position. Timeout was called. Propofol medication is administered. Rectal examination is done which did not reveal any masses, tears or fissures. An Olympus videoscope was introduced into the patient's rectum and advanced to the cecum. Patient has had surgery in the past. All the segments are visualized. PREOPERATIVE DIAGNOSIS: Personal history of colon cancer status post resection POSTOPERATIVE DIAGNOSIS: Inflammation at the anastomotic site status post biopsy OPERATION: Colonoscopy with biopsy. SURGEON: TIAN BLACK ANESTHESIA: LMAC TISSUE REMOVED OR ALTERED: As noted above. COMPLICATIONS: None. ESTIMATED BLOOD LOSS: None. INTRAOPERATIVE FINDINGS: As noted above. PROCEDURE: Patient tolerated the procedure well. No immediate postprocedure complications are noted. Patient is discharged in good condition. Discharge date 02/02/2020. Discharge diet: Regular. Discharge activity: Regular. 2 to 3-week follow-up to discuss findings. Patient is instructed call the office or proceed to the emergency room should there be any further problems or questions. 3 to 5-year surveillance colonoscopy.
[2020-02-02 08:28] VITALS: BP 134/91
== END 2020-02-02 08:48 | disposition home or self-care (01) ==
LOC: END 07:05
PROVIDERS: ATTEND Internal Medicine Gastroenterology
DX: Z12.11 Encounter for screening for malignant neoplasm of colon (principal); K52.9 Noninfective gastroenteritis and colitis, unspecified; Z85.038 Personal history of other malignant neoplasm of large intestine; Z90.49 Acquired absence of other specified parts of digestive tract; Z03.818 Encounter for observation for suspected exposure to other biological agents ruled out
CPT/HCPCS: 45380; 87635; 88305 ×2; J3490; J2704; C9803